=== PATIENT | male | born 1965 | race Caucasian/White ===

== ENCOUNTER 2018-06-04 14:55 | Inpatient (IN) ==
[2018-06-04 15:37] LABS: BE 13.9 mmoll (-3.0-3.0); BLOOD TYPE ARTERIAL; HCO3-(ACT) 35.4 mmoll (20.0-26.0); O2(CT) 13.5 mL/dL (15.0-23.0); SAMPLE BLOOD; SAO2 86.5 % (95.0-100.0); THB 12.1 g/dL (11.5-17.4); pH(98.6) 7.45 (7.35-7.45)
[2018-06-04 15:41] LABS: ALLEN TEST YES; MODALITY CANNULA; PCO2(98.6) 58 mmHg (35-45)
[2018-06-04 15:42] LABS: O2HB 79.7 % (95.0-99.0); PO2(98.6) 42 mmHg (60-100)
[2018-06-04] MEDS ORDERED: DUONEB (A & A) INH ONE (15:43)
[2018-06-04 15:44] LABS: BASO# 0.07 X1000 (0.0-0.2); BASO% 0.7 % (0.0-0.8); EOS# 0.11 X1000 (0.0-0.7); EOS% 1.2 % (0.0-10.0); HEMATOCRIT 41.7 % (42.0-52.0); HEMOGLOBIN 12.2 g/dL (14.0-18.0); IMM GRAN# 0.02 X1000 (0.0-0.04); IMM GRAN% 0.2 % (0.0-0.5); LYMPH# 0.98 X1000 (1.2-3.4); LYMPH% 10.5 % (20.5-51.1); MCH 26.6 PG (27-31); MCHC 29.3 g/dL (33-37); MCV 90.8 FL (81-99); MONO# 1.28 X1000 (0.11-0.59); MONO% 13.7 % (1.7-9.3); MPV 10.3 FL (7.4-10.4); NEUT# 6.91 X1000 (1.4-6.5); NEUT% 73.7 % (42.2-75.2); PLT 238 X1000 (130-400); RBC 4.59 XMIL (4.7-6.1); RDW 18.9 % (11.5-14.5); WBC 9.37 X1000 (4.8-10.8)
[2018-06-04 15:57] LABS: INR 1.06; PROTIME 14.3 Seconds (11.0-16.0)
[2018-06-04 15:58] LABS: PTT 34.5 Seconds (22.3-41.8)
[2018-06-04 16:02] LABS: AGAP 10; ALBUMIN 3.6 g/dL (3.5-5.0); ALKALINE PHOSPHATASE 115 U/L (32-122); BUN 16 mg/dL (8-22); CALCIUM 8.4 mg/dL (8.8-10.2); CHLORIDE 92 mmol/L (98-107); CK PROFILE 76 U/L (24-204); COSMO 283; CREATININE 0.9 mg/dL (0.7-1.2); ESTIMATED GFR > 60; GLUCOSE 135 mg/dL (70-104); GOT 18 U/L (10-34); GPT 15 U/L (10-44); POTASSIUM 3.8 mmol/L (3.5-5.1); SODIUM 140 mmol/L (136-145); TCO2 38 mmol/L (25-35); TOTAL PROTEIN 6.8 g/dL (6.3-8.3)
--- NOTE | 2018-06-04 16:13 | Diag Imaging Result Doc PS360 ---
EXAM: CHEST-2 VIEWS HISTORY: sob TECHNIQUE: Chest two views COMPARISON: 01/08/2018 FINDINGS: The lungs are well expanded. The heart is mildly enlarged. Mild central vascular distention. There are dense infiltrates in the right lung base. No pleural effusions. IMPRESSION: Cardiomegaly with mild pulmonary edema. Likely underlying pneumonia in the right base. Electronically signed by Louis eBebe 06/04/2018 4:10 PM
--- NOTE | 2018-06-04 16:16 | PROVIDER DOCUMENTATION ---
This chart was entered by Kemi Parikh Scribe, acting as scribe for Jayesh Madrigal MD. HPI-General Adult - General Chief Complaint: Shortness of Breath Stated Complaint: MALE Time Seen by Provider: 06/04/18 15:39 Source: patient Allergies/Adverse Reactions: Patient Allergies Allergy/AdvReac Type Severity Reaction Status Date / Time No Known Allergies Allergy Verified 10/15/17 11:16 Home Medications: Home Medication List Medication Instructions Recorded Confirmed Last Taken Type Diltiazem C.d. [Cardizem Cd] 120 mg PO DAILY #30 cap 01/10/18 Unknown Rx Furosemide [Lasix] 40 mg PO BID #60 tab 01/10/18 Unknown Rx LISINOpril [Prinivil] 20 mg PO DAILY #90 tab 01/10/18 Unknown Rx Methylprednisolone [Medrol Dosepak] 4 mg PO DIRECTED #1 pkg 01/10/18 Unknown Rx Omeprazole [Prilosec] 40 mg PO DAILY@0700 #30 cap 01/10/18 Unknown Rx - History of Present Illness -Gen Adult Nature of Presenting Problems: 52 y/o male presents to the ED with complaint of scrotal swelling. The patient states he has a history of CHF and COPD with chronic swelling but not to this point. The patient is also morbidly obese. Location of Pain/Injury: reports: generalized Onset/Duration: reports: gradual Timing: reports: still present Similar Symptoms Previously?: Yes Recently seen or treated by another doctor?: No Review of Systems - Adult - REVIEW OF SYSTEMS - ADULT Constitutional: reports: weight gain. denies: chills, fever Eyes: reports: no symptoms reported Ears, Nose, Mouth & Throat: reports: no symptoms reported Cardiovascular: reports: other (generalized fluid overload). denies: chest pain, palpitations, syncope Respiratory: reports: no symptoms reported Gastrointestinal: denies: diarrhea, nausea, vomiting Genitourinary: reports: no symptoms reported Musculoskeletal: reports: no symptoms reported Integumentary: reports: no symptoms reported Neurological: reports: no symptoms reported Psychiatric: reports: no symptoms reported Endocrine: reports: no symptoms reported Hematologic/Lymphatic: reports: no symptoms reported Allergic/Immunologic: reports: no symptoms reported All Other Systems: Reviewed and Negative Past History - Adult - PAST MEDICAL HISTORY-ADULT Review of Records: reports: Old Records Reviewed, Nursing Assessment Review, Medications Reviewed Major Childhood Illnesses: reports: denies history Cardiovascular: reports: CHF, HTN Respiratory: reports: COPD Gastrointestinal: reports: GERD Genitourinary: reports: denies history Musculoskeletal: reports: denies history Neurological: reports: denies history Endocrine/Immune: reports: denies history Other Conditions: reports: denies history - PRIOR SURGERIES/PROCEDURES Surgical/Procedure History: reports: orthopedic (extremity) (ankles, L knee) - IMMUNIZATION STATUS Childhood Immunizations: See Nurse Assessment Flu Vaccine: See Nurse Assessment - FAMILY HISTORY Family History: reviewed, not pertinent - SOCIAL HISTORY Smoking: cigarettes Provider spent 3-5 mins advising pt. on dangers of tobacco.: Discussed manners to quit use, and f/u contacts for add'l counseling. Living Situation: family Physical Exam-General - PHYSICAL EXAM-ADULT Initial Vital Signs Reviewed: Yes - CONSTITUTIONAL General Appearance: alert, obese - EYES Eyes: PERRL/EOMI, pink conjunctivae - HEAD, EARS, NOSE, MOUTH & THROAT HENMT: normocephalic/atraumatic, moist mucous membranes - NECK Neck: supple - RESPIRATORY Respiratory: rhonchi (inspiratory), other (diminished breath sounds, bases relatively quiet.) - CARDIOVASCULAR Cardiovascular: regular rate, rhythm, other (severe edema) - MUSCULOSKELETAL Extremity: other (severe edema) - SKIN Integumentary: erythema (bilateral lower extremities) - NEUROLOGIC Neurologic: grossly normal Progress - PLAN OF CARE/RESULTS Progress/Plan/Lab Results: Vital Signs - 8 hr 06/04/18 14:59 Temperature 98 F Pulse Rate 90 Respiratory Rate 18 Blood Pressure 115/75 O2 Sat by Pulse Oximetry 86 L Laboratory Results - last 24 hr 06/04/18 15:15 Specimen Type ARTERIAL Sample Site R RADIAL pH 7.45 pCO2 58 H* pO2 42 L* HCO3 35.4 H Base Excess 13.9 H Oxyhemoglobin 79.7 L* ABG O2 Sat (Calculated) 13.5 L ABG O2 Saturation 86.5 L ABG Carboxyhemoglobin 8.00 H* ABG Methemoglobin 0.0 Yasir Test YES A-a O2 Difference 35.0 Total Hemoglobin 12.1 Lactate 1.80 Blood Gas Modality CANNULA FiO2 % 21.0 Orders Category Date Time Status Cardiac Monitoring DIRECTED Care 06/04/18 15:18 Active Oxygen Therapy- ED Nursing DIRECTED Care 06/04/18 15:18 Active Saline Loc NOW Care 06/04/18 15:18 Active CHEST-2 VIEWS [RAD] Stat Exams 06/04/18 15:18 Ordered ABG [RESP] Routine Lab 06/04/18 15:15 Completed CBC WITH ELECTRONIC DIFF [HEME] Stat Lab 06/04/18 15:35 Results CK PROFILE [SP CHEM] Stat Lab 06/04/18 15:35 Received COMPREHENSIVE METABOLIC PANEL [CHEM] Stat Lab 06/04/18 15:35 Received PRO B-NATRIURETIC PEPTIDE Stat Lab 06/04/18 15:35 Received PROTIME WITH INR [COAG] Stat Lab 06/04/18 15:35 Received PTT [COAG] Stat Lab 06/04/18 15:35 Received TROPONIN T Stat Lab 06/04/18 15:35 Received CP/SOB/Palp >45 yrs of Age Stat Oth 06/04/18 15:17 Ordered EKG [EKG] Stat Ther 06/04/18 15:18 Ordered Transfer/Admit Order [TRANSFER] Routine Transfer 06/04/18 15:40 Ordered Result Diagrams: 06/04/18 15:35 06/04/18 15:35 - EKG 1 Time of EKG reading by physician:: 15:25 EKG Read and Signed by:: Jayesh Madrigal Rate: 89 Rhythm: sinus rhythm w/1st degree AV block Dubberly: normal Comments: Right bundle branch block Departure - Departure Date of Disposition Decision: 06/04/18 Time of Disposition Decision: 16:15 DIAGNOSIS: COPD (chronic obstructive pulmonary disease), Cor pulmonale (chronic), Sleep apnea in adult Disposition: ADMITTED INPATIENT 09 Certified Medical Emergency: Emergent Condition: Stable Referrals and Follow-Ups: Carlo Bonds MD [Primary Care Provider] - - Critical Care Note This patient required my direct & personal management of CC.: No Attestation - Physician/ JEANE Attestation Patient care was provided by Advanced Practice Provider:: No The physician spent face to face time with patient:: Yes Advanced Practice Provider documentation review:: Supervising physician onsite and consulted in the evaluation and care of this patient. The physician did have a face to face encounter with the patient. This chart was documented by the indicated scribe, (Kemi Parikh, Peggy) and accurately reflects the services I performed and decisions made by me, Jayesh Madrigal MD, as attested by the provider's signature.
[2018-06-04] MEDS ORDERED: LASIX IV ONE (17:31)
[2018-06-04] MEDS ORDERED: DUONEB (A & A) INH PRN (17:33)
[2018-06-04] MEDS ORDERED: NICODERM PATCH TD SCH (17:45)
[2018-06-04] MEDS ORDERED: ZITHROMAX 500 MG/NS 500 MG/250 ML IVPB IV SCH ×2 (17:45→22:15)
[2018-06-04] MEDS ORDERED: ROCEPHIN 1 GM in NS 50 ML IV SCH (17:45)
[2018-06-04 18:22] LABS: FREE T4 1.14 ng/dL (0.93-1.70); TSH 1.87 uIUmL (0.27-4.20)
--- NOTE | 2018-06-04 18:55 | HISTORY AND PHYSICAL ---
ADDENDUM: CHIEF COMPLAINT: Shortness of breath. Patient was seen and examined by myself. Full note dictated and discussed with nurse practitioner. Patient has a known history of COPD, CHF, and obstructive sleep apnea. I expect he is [place] as well. He has been out of his medications, has lost his job, and so he has not gone to his doctor. He is in an acute exacerbation of his CHF. We will admit him to the hospital. Daria Sheikh, and will follow. cc: Carlo Bonds MD
[2018-06-04] MEDS ORDERED: NARCAN IV ONE ×2 (19:14→20:05)
[2018-06-04] MEDS: DUONEB (A & A) INH SCH ×2 (19:20→22:32)
[2018-06-04] MEDS ORDERED: NARCAN ONE (19:20)
[2018-06-04] MEDS ORDERED: NS 1,000 ML ONE (19:25)
[2018-06-04 19:54] LABS: BE 15.4 mmoll (-3.0-3.0); BLOOD TYPE ARTERIAL; HCO3-(ACT) 36.8 mmoll (20.0-26.0); METHB 1.2 % (0.0-1.5); O2(CT) 17.3 mL/dL (15.0-23.0); O2HB 92.7 % (95.0-99.0); PO2(98.6) 118 mmHg (60-100); SAMPLE BLOOD; SAO2 98.6 % (95.0-100.0); THB 13.1 g/dL (11.5-17.4); pH(98.6) 7.23 (7.35-7.45)
[2018-06-04 19:56] LABS: ALLEN TEST YES; MODALITY BI PAP; PCO2(98.6) 115 mmHg (35-45)
[2018-06-04 19:57] LABS: UR AMPHETAMINES QUAL NONE DETECTED (NONE DETECT); UR BARBITUATES QUAL NONE DETECTED (NONE DETECT); UR BENZODIAZEPIN QUAL NONE DETECTED (NONE DETECT); UR CANNABINOIDS QUAL PRESUMPTIVE POSITIVE (NONE DETECT); UR COCAINE QUAL NONE DETECTED (NONE DETECT); UR METHADONE QUAL NONE DETECTED (NONE DETECT); UR METHAMPHETAMINE QUAL NONE DETECTED (NONE DETECT); UR OPIATES QUAL NONE DETECTED (NONE DETECT); UR OXYCODONE QUAL NONE DETECTED (NONE DETECT); UR PCP QUAL NONE DETECTED (NONE DETECT); UR PROPOXYPHENE QUAL NONE DETECTED (NONE DETECT); UR TCA QUAL NONE DETECTED (NONE DETECT); URINE SOURCE CATH
[2018-06-04 20:00] LABS: BILIRUBIN URINE NEGATIVE (NEGATIVE); BLOOD URINE NEGATIVE (NEGATIVE); CLARITY SLIGHTLY CLOUDY (CLEAR); COLOR YELLOW; GLUCOSE URINE NEGATIVE (NEGATIVE); KETONE URINE TRACE mg/dL (NEGATIVE); LEUKOCYTES URINE NEGATIVE (NEGATIVE); NITRITE URINE NEGATIVE (NEGATIVE); PROTEIN URINE 2+(100 mg/dL) mg/dL (NEGATIVE); UROBILINOGEN URINE 4 mg/dL
[2018-06-04 20:02] LABS: URINE BACTERIA 1+ /HFP; URINE CAST GRANULAR PRESENT /LPF; URINE EPITHELIAL CELLS >10 /HPF (<10); URINE RBC <10 /HPF (<10); URINE WBC <10 /HPF (<10); URINE YEAST NONE SEEN /HPF
[2018-06-04 20:03] LABS: URINE CRYSTAL NONE SEEN /HPF
[2018-06-04] MEDS: ASPIRIN PO SCH (20:22)
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
[2018-06-04] MEDS ORDERED: VERSED IV ONE (20:30)
[2018-06-04] MEDS ORDERED: NORCURON IV ONE (20:30)
[2018-06-04] MEDS ORDERED: VERSED ONE (20:33)
[2018-06-04] MEDS ORDERED: NORCURON ONE (20:33)
[2018-06-04] MEDS ORDERED: STERILE WATER INJ. ONE (20:34)
[2018-06-04] MEDS ORDERED: DIPRIVAN 1% 1,000 MG/100 ML BOTTLE ONE (20:55)
[2018-06-04] MEDS: DIPRIVAN 1% 1,000 MG/100 ML BOTTLE IV SCH ×3 (21:04→23:39)
[2018-06-04 21:29] LABS: BE 15.8 mmoll (-3.0-3.0); BLOOD TYPE ARTERIAL; HCO3-(ACT) 37.2 mmoll (20.0-26.0); O2(CT) 17.5 mL/dL (15.0-23.0); O2HB 93.6 % (95.0-99.0); PO2(98.6) 100 mmHg (60-100); SAMPLE BLOOD; SAO2 98.9 % (95.0-100.0); SRATE 18 BPM; THB 13.2 g/dL (11.5-17.4); TVOL 550 mL; pH(98.6) 7.36 (7.35-7.45)
--- NOTE | 2018-06-04 21:30 | Diag Imaging Result Doc PS360 ---
EXAM: CHEST-PORTABLE HISTORY: verify tube placement TECHNIQUE: Portable chest single view COMPARISON: 3:58 PM FINDINGS: An endotracheal tube has been placed since the prior study. The tip is located approximately 3 cm above the ayesha. There are infiltrates and/or atelectasis in the right base. IMPRESSION: Endotracheal tube in good position. Electronically signed by Louis Beebe 06/04/2018 9:27 PM
[2018-06-04 21:31] LABS: ALLEN TEST YES; MODALITY VENTILATOR; PCO2(98.6) 80 mmHg (35-45)
[2018-06-04] MEDS: SOLU-MEDROL IV SCH (21:51)
[2018-06-04] MEDS: LOVENOX SUBQ SCH (21:51)
[2018-06-04] MEDS ORDERED: LASIX ONE (22:02)
[2018-06-05] MEDS: DIPRIVAN 1% 1,000 MG/100 ML BOTTLE IV SCH ×12 (02:09→23:58)
[2018-06-05] MEDS: SOLU-MEDROL IV SCH ×3 (02:11→17:39)
[2018-06-05] MEDS: DUONEB (A & A) INH SCH ×6 (03:39→23:45)
[2018-06-05 05:02] LABS: ALLEN TEST YES; BE 17.1 mmoll (-3.0-3.0); BLOOD TYPE ARTERIAL; HCO3-(ACT) 38.2 mmoll (20.0-26.0); METHB 1.1 % (0.0-1.5); O2(CT) 17.5 mL/dL (15.0-23.0); O2HB 95.2 % (95.0-99.0); PO2(98.6) 88 mmHg (60-100); SAMPLE BLOOD; SAO2 98.9 % (95.0-100.0); SRATE 18 BPM; TVOL 550 mL; pH(98.6) 7.46 (7.35-7.45)
[2018-06-05 05:03] LABS: MODALITY VENTILATOR
[2018-06-05 05:04] LABS: PCO2(98.6) 62 mmHg (35-45)
[2018-06-05 05:17] LABS: HEMATOCRIT 43.3 % (42.0-52.0); HEMOGLOBIN 12.4 g/dL (14.0-18.0); MCH 26.6 PG (27-31); MCHC 28.6 g/dL (33-37); MCV 92.7 FL (81-99); RBC 4.67 XMIL (4.7-6.1); RDW 19.2 % (11.5-14.5)
[2018-06-05 05:40] LABS: AGAP 9; BUN 18 mg/dL (8-22); CALCIUM 9.2 mg/dL (8.8-10.2); CHLORIDE 94 mmol/L (98-107); COSMO 281; CREATININE 1.2 mg/dL (0.7-1.2); ESTIMATED GFR > 60; GLUCOSE 134 mg/dL (70-104); POTASSIUM 4.4 mmol/L (3.5-5.1); SODIUM 139 mmol/L (136-145); TCO2 36 mmol/L (25-35)
--- NOTE | 2018-06-05 06:56 | Diag Imaging Result Doc PS360 ---
EXAM: CHEST-PORTABLE HISTORY: Pt on vent TECHNIQUE: Portable chest single view COMPARISON: 06/04/2018 FINDINGS: No change in the position of the endotracheal tube. The heart is not enlarged. Mild central vascular prominence and there are small pleural effusions. There are underlying infiltrates or basilar atelectasis. IMPRESSION: No interval improvement. Electronically signed by Louis Beebe 06/05/2018 6:53 AM
[2018-06-05] MEDS ORDERED: LASIX IV SCH ×2 (08:00→09:00)
[2018-06-05] MEDS ORDERED: VANCOMYCIN IV PER PHARMACY MISC SCH (08:45)
[2018-06-05] MEDS: PERIDEX MT SCH ×2 (08:58→21:28)
[2018-06-05] MEDS: PROTONIX IV SCH (09:26)
[2018-06-05] MEDS: LASIX IV SCH ×3 (09:27→21:27)
[2018-06-05] MEDS: ZOSYN 3.375 GM in NS 50 ML IV SCH ×3 (09:27→21:27)
[2018-06-05] MEDS: ASPIRIN PO SCH (09:27)
[2018-06-05] MEDS: VANCOMYCIN 1,800 MG in NS 250 ML IV SCH (10:54)
--- NOTE | 2018-06-05 11:41 | PROGRESS NOTE ---
DATE: 06/05/2018 INTERVAL HISTORY: Mr. Gonzalez was transferred from [facility] [place] to [facility] for need for pulmonology evaluation. He was admitted to [facility] [place] for acute hypoxic respiratory failure in the setting of COPD exacerbation as well as right heart failure. SUBJECTIVE: Patient is intubated and sedated. It looks like at [facility] [place] he had presented with shortness of breath and severe respiratory distress . His respiratory distress had started getting worse to an extent that he could not tolerate BiPAP well, and needed intubation. Then, he was or transferred to [facility] overnight. OBJECTIVE: Vital Signs: Currently, vital signs detect temperature of 97.2 degrees, pulse of 76, respiratory rate on 18 on mechanical ventilation. He is saturating 94% on 100% FiO2. His blood pressure is 117/79. General: Morbidly obese and sedated. HEENT: Pupils bilaterally equal and reacting to light. Oral cavity has endotracheal tube. Significantly decreased air entry bilateral lung boggs with apparent wheezing bilaterally. S1, S2 normal. No murmur, rub, or gallop. Abdomen: Obese, soft, and nontender. Extremities: Extreme edema affecting scrotum and bilateral lower extremities extending up to thighs. I could not appreciate reflexes very well. LABORATORY: Labs suggestive of normocytic anemia and normal platelet count. His ABG in the morning had pH of 7.46, pCO2 of 62, PO2 of 88 on 100% FiO2. His electrolytes suggest hypochloremia, elevated bicarbonate, and normal kidney function. His troponin's have been negative. No blood culture or sputum culture data available as yet. IMAGING: Chest x-ray today morning had suggested central vascular prominence, small pleural effusions, and underlying infiltrates or basilar atelectasis. ASSESSMENT AND PLAN: 1. Acute hypoxic respiratory failure with chronic hypercarbic respiratory failure with volume overload. Contributing factors includes acute diastolic predominantly right sided congestive heart failure exacerbation, pulmonary hypertension, bilateral lower lobe pneumonia, acute COPD exacerbation. Continue mechanical ventilation with pulmonology recommendations. Continue intravenous Lasix with close monitoring of input and output and BMP. Follow up blood culture and sputum culture results, urine antigens and continue broad antibiotics vancomycin and Zosyn. Continue sedation with propofol with goal RASS score of -1. Continue albuterol ipratropium nebulization every 4 hours scheduled. Chlorhexidine for ventilator associated pneumonia prophylaxis, and methylprednisone intravenous every 8 hours. 2. Others: Continue pantoprazole for GI prophylaxis. 3. Enoxaparin for DVT prophylaxis. 4. He does have past history of DVT/PE in September of 2017, past history of sleep apnea and pulmonary hypertension. In future a repeat CT PE could be a consideration if he doesn't improve. DISPOSITION: More than 30 minutes of critical care time was spent in taking care of this patient. Plan of care was discussed with the nursing team. I reached out and called the patient's . However, the patient's father in law picked up the phone, and I was not able to reach out to the . I have left a message with father in law so that the calls us back. cc: Sumeet Franklin MD MTDD
--- NOTE | 2018-06-05 12:14 | EKG Report ---
Test Performed on : 06/04/2018 3:25:00 PM Test Reason : sob Blood Pressure : / mmHG Vent. Rate : 089 BPM Atrial Rate : 089 BPM P-R Int : 220 ms QRS Dur : 176 ms QT Int : 424 ms P-R-T Axes : 058 166 052 degrees QTc Int : 515 ms Sinus rhythm. with 1st degree AV block. Right bundle branch block Abnormal ECG When compared with ECG of 05-JAN-2018 13:18, QRS axis shifted right Unconfirmed Result
--- NOTE | 2018-06-05 12:29 | EKG Report ---
Test Performed on : 06/04/2018 9:05:38 PM Test Reason : ER Blood Pressure : / mmHG Vent. Rate : 076 BPM Atrial Rate : 076 BPM P-R Int : 224 ms QRS Dur : 180 ms QT Int : 442 ms P-R-T Axes : 061 169 017 degrees QTc Int : 497 ms Sinus rhythm. with 1st degree AV block. Indeterminate axis Right bundle branch block Abnormal ECG When compared with ECG of 04-JUN-2018 15:25, (Unconfirmed) No significant change was found Confirmed by Jayesh Madrigal MD ([id number]) on 06/11/2018 11:15:05 AM
[2018-06-05] MEDS: LOVENOX SUBQ SCH (17:40)
--- NOTE | 2018-06-05 19:15 | PULMONOLOGY CONSULTATION ---
DATE: 06/05/2018 REQUESTING PHYSICIAN: Dr. Bonds. REASON FOR CONSULTATION: Respiratory failure. HISTORY OF PRESENT ILLNESS: Mr. Gonzalez is a 52-year-old white male with morbid obesity and a BMI greater than 58, COPD with ongoing tobacco use, pulmonary hypertension, history of deep vein thrombosis, who presented to [facility] Room yesterday with increased shortness of breath, along with increased swelling in his lower extremities and his scrotum. He had acute hypoxemic respiratory failure upon presentation, along with a carboxyhemoglobin level of 8. The patient was admitted to the floor for treatment, but developed progressive obtundation requiring intubation and initiation of mechanical ventilation. The patient was transferred to [facility]. PAST MEDICAL HISTORY: Problem List: 1. Morbid obesity. 2. COPD, with ongoing tobacco use. 3. Pulmonary hypertension. 4. Reflux. 5. Sleep apnea without compliance to CPAP device. 6. Diastolic heart failure. SOCIAL HISTORY: The patient smokes two packs a day, along with frequent marijuana use. No alcohol use noted. FAMILY HISTORY: Not contributory to current presentation. REVIEW OF SYSTEMS: Cannot be obtained. PHYSICAL EXAMINATION: General: Reveals a morbidly obese male who is sedated and appears comfortable on mechanical ventilation. BP 136/91, heart rate 82, respiratory rate 18, oxygen saturation 95%. HEENT: Pupils are equal and reactive. Oropharynx appears clear. Neck: Supple. Chest: Reveals prolonged expiratory phase. Cardiac: S1, S2. Abdomen: Obese and soft. Genitourinary: Reveals significant scrotal edema. Extremities: Reveal 1+ peripheral edema. LABORATORIES: Arterial blood gas prior to intubation: pH 7.23, pCO2 of 115, PO2 of 118 on 80% FiO2. Arterial blood gas this morning on 80% FiO2 reveals pH 7.46, pCO2 of 62, PO2 of 88. Chemistry: Sodium 139, potassium 4.4, chloride 94, bicarbonate 36, BUN 18, creatinine 1.2. ProBNP is 1516. White blood count 8.0, hemoglobin 12.4, platelet count 219,000. Chest x-ray reveals generous cardiac silhouette, pulmonary edema, pleural effusions. IMPRESSION: A 52-year-old with COPD, ongoing tobacco use, morbid obesity with a BMI of 58, marijuana use, obstructive sleep apnea with noncompliance to regimen, who presents with acute cor pulmonale with significant edema, pulmonary edema, acute hypoxemic respiratory failure, acute hypercapnic respiratory failure. RECOMMENDATIONS: 1. Agree with intubation as you have done for acute hypoxemic and hypercapnic respiratory failure. 2. Keep oxygen saturation greater than 90%. 3. I agree with steroids and current Lasix dosing. The patient has significant amount of fluid and may take several days to diurese. 4. Continue bronchodilators. 5. Gastric acid suppression. 6. Continue DVT prophylaxis. 7. His long-term prognosis looks extremely poor if he does not lose weight and stop smoking traditional cigarettes and marijuana. TIME SPENT: Critical care 1 hour. cc: Danish Garg MD
[2018-06-05] MEDS ORDERED: ZITHROMAX 500 MG/NS 500 MG/250 ML IVPB IV SCH (22:00)
[2018-06-06] MEDS: DIPRIVAN 1% 1,000 MG/100 ML BOTTLE IV SCH ×13 (00:55→23:19)
[2018-06-06] MEDS: ZOSYN 3.375 GM in NS 50 ML IV SCH ×4 (01:59→19:45)
[2018-06-06] MEDS: SOLU-MEDROL IV SCH ×3 (02:00→18:32)
[2018-06-06] MEDS: LASIX IV SCH ×4 (02:01→21:44)
[2018-06-06] MEDS: DUONEB (A & A) INH SCH ×6 (03:53→23:15)
[2018-06-06] MEDS: VANCOMYCIN 1,800 MG in NS 250 ML IV SCH ×2 (03:55→22:01)
[2018-06-06 05:19] LABS: BLOOD TYPE ARTERIAL; MODALITY VENTILATOR; SAMPLE BLOOD
[2018-06-06 05:20] LABS: SRATE 14 BPM; TVOL 6 mL
[2018-06-06 05:21] LABS: ALLEN TEST YES
[2018-06-06 05:22] LABS: pH(98.6) 7.45 (7.35-7.45)
[2018-06-06 05:24] LABS: PO2(98.6) 163 mmHg (60-100)
[2018-06-06 05:26] LABS: PCO2(98.6) 61 mmHg (35-45)
[2018-06-06 05:44] LABS: HEMATOCRIT 43.1 % (42.0-52.0); HEMOGLOBIN 12.6 g/dL (14.0-18.0); MCH 26.4 PG (27-31); MCHC 29.2 g/dL (33-37); MCV 90.4 FL (81-99); MPV 10.6 FL (7.4-10.4); RBC 4.77 XMIL (4.7-6.1); RDW 19.7 % (11.5-14.5); WBC 9.07 X1000 (4.8-10.8)
[2018-06-06 06:08] LABS: AGAP 12; BUN 21 mg/dL (8-22); CALCIUM 8.9 mg/dL (8.8-10.2); CHLORIDE 96 mmol/L (98-107); COSMO 295; CREATININE 1.1 mg/dL (0.7-1.2); ESTIMATED GFR > 60; GLUCOSE 154 mg/dL (70-104); POTASSIUM 3.8 mmol/L (3.5-5.1); SODIUM 145 mmol/L (136-145); TCO2 37 mmol/L (25-35)
[2018-06-06] MEDS: PROTONIX IV SCH (07:35)
[2018-06-06] MEDS: SODIUM CHLORIDE 0.9% INJ SCH (07:35)
--- NOTE | 2018-06-06 07:58 | Diag Imaging Result Doc PS360 ---
EXAM: CHEST-PORTABLE INDICATION: Dyspnea TECHNIQUE: One view COMPARISON: 06/05/2018 FINDINGS: ET tube is in stable position. Pulmonary venous congestion is approximately stable. The effusions, at least on the right, appears smaller. This is probably due to positioning, however. No new consolidation is identified. Cardiac silhouette is stable. IMPRESSION: Questionable slight decrease in size of pleural effusions. Stable chest, otherwise. Electronically signed by Anastacio Mercedes 06/06/2018 7:55 AM
[2018-06-06] MEDS: ASPIRIN PO SCH (08:50)
[2018-06-06] MEDS: PERIDEX MT SCH ×2 (08:51→21:46)
--- NOTE | 2018-06-06 10:27 | Diag Imaging Result Doc PS360 ---
EXAM: CHEST-PORTABLE INDICATION: Verify NG placement TECHNIQUE: One view COMPARISON: 06/06/2018 FINDINGS: There is a newly placed NG tube. The tip projects well below the diaphragm and is assumed in the lumen of the stomach in expected position. Limited views of the lung bases are grossly stable. IMPRESSION: Interval placement of NG tube in expected position as described. Electronically signed by Anastacio Mercedes 06/06/2018 10:25 AM
--- NOTE | 2018-06-06 10:55 | PROGRESS NOTE ---
DATE: 06/06/2018 INTERVAL HISTORY: It is unclear that the patient was agitated overnight or not, but apparently, he required restraints, and his propofol was increased in dose. In the morning time, he appears very sedated, intubated, does not answer any questions, and I discussed with the nursing team about decreasing sedation. I also discussed with Respiratory Therapy about decreasing FiO2. His EKG did detect a right bundle branch block which was old with left anterior fascicular block. OBJECTIVE: Currently vitals detect temperature of 96.8 degrees, pulse of 71, respiratory rate 15, his blood pressure is 124/86. He is saturating 95% on 90% FiO2. On physical examination, morbidly obese, sedated. Pupils bilaterally equal, reacting to light. He has endotracheal tube. Thick chest wall and is difficult to appreciate breath sounds. However, his wheezing appeared to have improved. Mild bilateral decreased air entry with crackles. S1, S2 normal. No murmur, rub, or gallop. Obese abdomen, soft, nontender. Extreme edema affecting scrotum and bilateral lower extremities extending up to thighs. Reflexes were difficult to be appreciated. INPUT AND OUTPUT: Suggests he has 5 L urine with -3 L so far. LABORATORY DATA: Labs suggestive of no leukocytosis. Normal hemoglobin, hematocrit, and platelet count. ABG suggestive of PO2 of 160 and pCO2 of 61 on 100% FiO2. Hypochloremia, elevated bicarbonate with normal kidney function. The blood glucoses have been in acceptable range. MICROBIOLOGY: Blood culture and sputum culture are in lab. Urine antigens have not been collected yet. IMAGING: Chest x-ray performed today suggests bilateral pleural effusion. There might be increased pulmonary vascular congestion. ASSESSMENT: 1. Acute hypoxic respiratory failure and acute hypercarbic respiratory failure on chronic hypercarbic respiratory failure. 2. Bilateral lower lobe pneumonia and bilateral pleural effusion. 3. Acute cor pulmonale. 4. Severe pulmonary hypertension and sleep apnea. 5. Morbid obesity. 6. Previous history of deep vein thrombosis/pulmonary embolism in September [address] angiography and ultrasound lower extremity in December 2017. PLAN: Continue intubation with mechanical ventilation and propofol for sedation and decrease the sedation as tolerated. Continue chlorhexidine for pneumonia prophylaxis, pantoprazole for GI prophylaxis, enoxaparin for DVT prophylaxis. Continue albuterol/ipratropium every 4 hours for acute COPD exacerbation with methylprednisolone with intravenous Lasix. Continue intravenous antibiotics and follow up with culture results. DISPOSITION: The patient's condition remains critical. Plan of care was discussed with the patient's at bedside. I explained to her about the patient's multiple medical conditions and poor prognosis. Once patient is extubated, he might need nicotine patches. Plan of care discussed with her. All of her questions have been answered. cc: Sumeet Franklin MD
--- NOTE | 2018-06-06 13:07 | EKG Report ---
Test Performed on : 06/05/2018 00:17:10 AM Test Reason : widening qrs Blood Pressure : / mmHG Vent. Rate : 072 BPM Atrial Rate : 072 BPM P-R Int : 218 ms QRS Dur : 176 ms QT Int : 438 ms P-R-T Axes : 058 208 031 degrees QTc Int : 479 ms Sinus rhythm. with 1st degree AV block. Right bundle branch block Abnormal ECG When compared with ECG of 04-JUN-2018 21:05, (Unconfirmed) No significant change was found Confirmed by Ronaldo YE, Michael ([id number]) on 06/07/2018 8:54:06 AM
[2018-06-06] MEDS: LOVENOX SUBQ SCH (18:32)
--- NOTE | 2018-06-06 20:35 | PULMONOLOGY PROGRESS NOTE ---
DATE: 06/06/2018 SUBJECTIVE: The patient does become agitated and has required restraints to keep him from pulling his endotracheal tube. OBJECTIVE: Vital Signs: The patient has been afebrile for the last 24 hours. He remains on mechanical ventilation with ahigh FiO2 requirement. BP 130/109, heart rate 94, respiratory rate 12, oxygen saturation 93%. Intake 2006, output 5350. HEENT: Pupils are equal and reactive. Oropharynx appears clear. Neck: Supple. Chest reveals distant breath sounds bilaterally with faint crackles. Cardiac: Distant heart sounds. Normal S1, normal S2. Abdomen: Obese and soft. Genitourinary: Reveals significant scrotal edema. Extremities: Reveal 2+ peripheral edema. LABORATORIES: Sodium 145, potassium 3.8, chloride 96, bicarbonate 37, BUN 21, creatinine 1.1. White blood count 9.07, hemoglobin 12.6, platelet count 224,000. Arterial blood gas reveals a pH 7.45, pCO2 of 61, PO2 of 163. IMPRESSION: A 52-year-old with: 1. Chronic obstructive pulmonary disease. 2. Ongoing tobacco use. 3. Acute hypoxemic respiratory failure. 4. Acute hypercapnic respiratory failure. 5. Morbid obesity with a BMI of 58. 6. Marijuana use. 7. Obstructive sleep apnea with noncompliance. 8. Acute cor pulmonale. 9. Pulmonary edema. RECOMMENDATIONS: 1. Continue ventilatory support. It is hoped with adequate oxygenation he will start to mobilize a significant amount of his total body fluid. 2. Continue DVT prophylaxis. 3. Continue bronchodilators. 4. Anticipate needs for NG tube placement for caloric supplementation to prevent protein and skin breakdown. 5. Long-term, patient will need to lose weight and stop smoking cigarettes and marijuana if he wants to survive. TIME SPENT: Critical care 30+ minutes. cc: Danish Garg MD
[2018-06-07] MEDS: SOLU-MEDROL IV SCH ×3 (00:55→17:37)
[2018-06-07] MEDS: DIPRIVAN 1% 1,000 MG/100 ML BOTTLE IV SCH ×13 (00:56→23:43)
[2018-06-07] MEDS: ZOSYN 3.375 GM in NS 50 ML IV SCH ×4 (02:28→19:43)
[2018-06-07] MEDS: LASIX IV SCH ×5 (02:28→21:54)
[2018-06-07] MEDS: DUONEB (A & A) INH SCH ×7 (03:53→23:37)
[2018-06-07 05:10] LABS: ALLEN TEST YES; BE 17.1 mmoll (-3.0-3.0); BLOOD TYPE ARTERIAL; HCO3-(ACT) 38.2 mmoll (20.0-26.0); O2(CT) 18.5 mL/dL (15.0-23.0); O2HB 96.4 % (95.0-99.0); PO2(98.6) 115 mmHg (60-100); SAMPLE BLOOD; SAO2 99.1 % (95.0-100.0); SRATE 10 BPM; THB 13.5 g/dL (11.5-17.4); TVOL 650 mL; pH(98.6) 7.44 (7.35-7.45)
[2018-06-07 05:11] LABS: MODALITY VENTILATOR
[2018-06-07 05:12] LABS: HEMATOCRIT 43.8 % (42.0-52.0); HEMOGLOBIN 12.7 g/dL (14.0-18.0); MCV 89.8 FL (81-99); MPV 10.7 FL (7.4-10.4); RBC 4.88 XMIL (4.7-6.1); RDW 19.8 % (11.5-14.5); WBC 11.72 X1000 (4.8-10.8)
[2018-06-07 05:33] LABS: MAGNESIUM 2.4 mg/dL (1.5-2.7); PREALBUMIN 17.2 mg/dL (20-40)
[2018-06-07 05:38] LABS: CREATININE 1.3 mg/dL (0.7-1.2)
--- NOTE | 2018-06-07 07:06 | Diag Imaging Result Doc PS360 ---
EXAM: CHEST-PORTABLE HISTORY: OG tube placement and vent protocol TECHNIQUE: Portable chest single view COMPARISON: 06/06/2018 FINDINGS: No change in the endotracheal tube. A nasogastric tube overlies the esophagus. I am unable to see the distal portion due to the technique and the location of the film. The heart is enlarged. There is pulmonary edema. There may be underlying infiltrates. There is a small left pleural effusion. IMPRESSION: No interval improvement. Electronically signed by Louis Beebe 06/07/2018 7:03 AM
--- NOTE | 2018-06-07 08:31 | Diag Imaging Result Doc PS360 ---
EXAM: CHEST/ABD TUBE PLACEMENT HISTORY: OGT placement TECHNIQUE: Chest abdomen COMPARISON: 5:46 AM FINDINGS: There is a nasogastric tube overlying the stomach. This appears to be in good position. Electronically signed by Louis Beebe 06/07/2018 8:29 AM
[2018-06-07] MEDS ORDERED: FENTANYL IV PRN (08:36)
[2018-06-07] MEDS: PERIDEX MT SCH ×3 (08:59→21:54)
[2018-06-07] MEDS: PROTONIX IV SCH (08:59)
[2018-06-07] MEDS: ASPIRIN PO SCH (09:02)
--- NOTE | 2018-06-07 10:20 | PROGRESS NOTE ---
DATE: 06/07/2018 INTERVAL HISTORY: His FiO2 was lowered to 70% and he has been tolerating that well with saturation of 93 to 94 percent. No other acute events overnight. His kidney function is worsening. We will continue with the diuretics when we discussed about putting in OG tube, advancing diet as per dietitian recommendation. OBJECTIVE: Vital signs: Temperature of 97.4 degrees, pulse of 79, respiratory rate 10, blood pressure 110/70, saturating 90% on 70% FiO2. General: Intubated. Not responding to verbal stimuli. He flickers to strong painful stimuli. Lungs: Air entry bilaterally equal. The chest wall is very thick and it is difficult to appreciate breath sounds and lung sounds properly. However, his wheezing has appeared to be improving. Mild decreased air entry in infrascapular region. Cardiovascular: S1, S2 normal. No murmur, rub, or gallop. Abdomen: Obese, soft, nontender. Extremities: Edema affecting scrotum and bilateral lower extremities extending up to thighs. Reflexes were difficult to be appreciated. Neurologic: Bilateral pupils equal, reacting to light. He flickers to painful stimuli on all extremities. However, it is difficult to elicit response and I discussed with the nursing team about decreasing propofol. INPUT AND OUTPUT: Suggests he was -3.3 L yesterday, -48 mL so far today. MICROBIOLOGY: His blood culture and sputum culture has no growth to date. IMAGING: Chest x-ray performed today suggests no interval improvement. ASSESSMENT: 1. Acute hypoxic respiratory failure and acute hypercarbic respiratory failure on chronic hypercarbic respiratory failure. 2. Bilateral lower lobe suspected pneumonia versus pulmonary edema and bilateral pleural effusion. 3. Acute cor pulmonale. 4. Severe pulmonary hypertension and sleep apnea. 5. Morbid obesity. 6. Previous history of deep venous thrombosis and pulmonary embolism in September [address] angiography of chest and ultrasound of lower extremities in December 2017. Not compliant with anticoagulation. PLAN: 1. Continue intubation with mechanical ventilation and propofol for sedation with decreasing the propofol as tolerated. I also ordered intravenous p.r.n. fentanyl for intermittent agitation. Continue chlorhexidine for pneumonia prophylaxis, pantoprazole for GI prophylaxis, enoxaparin for DVT prophylaxis. 2. Continue albuterol ipratropium nebulization every 4 hours for acute COPD exacerbation with methylprednisolone, intravenous antibiotics and intravenous Lasix for acute cor pulmonary. 3. If his culture remains negative, then tomorrow his antibiotics could be deescalate. Continue tube feeds and advance as tolerated. DISPOSITION: The patient remains in ICU for critical care. TIME SPENT: More than 30 minutes of time was spent in taking care of this critically ill patient. Yesterday, I had discussed with the patient's at bedside about his critical condition and had answered all of her questions. I had frankly told her that the patient might eventually because of his morbid obesity, sleep apnea and chronic obstructive pulmonary disease if he does not practice lifestyle modification from now on. cc: Sumeet Franklin MD
[2018-06-07] MEDS: VANCOMYCIN 1,800 MG in NS 250 ML IV SCH (16:51)
[2018-06-07] MEDS: LOVENOX SUBQ SCH (17:38)
--- NOTE | 2018-06-07 21:27 | PULMONOLOGY PROGRESS NOTE ---
DATE: 06/07/2018 SUBJECTIVE: The patient is sedated. He remains on mechanical ventilation. OBJECTIVE: Vital Signs: The patient has been afebrile for the last 24 hours. BP 124/81, heart rate 78, respiratory rate 11, oxygen saturation 90% on 70% FiO2. Intake 2172, output 2220. HEENT: Pupils are equal and reactive. Oropharynx appears clear. Neck: Supple. Chest: Reveals shallow breath sounds bilaterally with bilateral crackles. Cardiac exam: S1, S2. Abdomen: Obese and soft. : The patient continues to have significant scrotal edema and 2+ peripheral edema. LABORATORIES: Chest x-ray reveals cardiomegaly, pulmonary edema with small effusion and no improvement. Sodium 143, potassium 4.0, chloride 94, bicarbonate 40, BUN 27, creatinine 1.3, glucose 124. White blood count 11.7, hemoglobin 12.7, platelet count 267,000. Arterial blood gas: PH 7.44, pCO2 of 66, pO2 of 115. IMPRESSION: A 52-year-old with: 1. Morbid obesity with a body mass index greater than 56. 2. Chronic obstructive pulmonary disease with ongoing tobacco use. 3. Acute hypoxemic respiratory failure. 4. Acute hypercapnic respiratory failure. 5. Obstructive sleep apnea with noncompliance. 6. Acute cor pulmonale. 7. Pulmonary edema with total body fluid overload. DISCUSSION: A 52-year-old with problems outlined above. The patient is barely negative this morning, despite significant Lasix dosing. It is hoped that he has mild ATN associated with his initial illness and he will begin to diurese over the next 24 to 48 hours. If he develops progressive renal failure, he may require dialysis, but it is hoped that this can be avoided. RECOMMENDATION: 1. Continue ventilatory support. He continues to require significant amount of oxygen. 2. Continue diuresis as tolerated. 3. Continue DVT prophylaxis. 4. Continue bronchodilators. 5. Agree with tube feeds as you are doing. 6. Long-term prognosis is guarded given his weight and ongoing tobacco and cannabis use. TIME SPENT: Critical care, 30+ minutes. cc: Danish Garg MD
[2018-06-08] MEDS: SOLU-MEDROL IV SCH ×3 (01:32→17:34)
[2018-06-08] MEDS: DIPRIVAN 1% 1,000 MG/100 ML BOTTLE IV SCH ×10 (02:21→22:30)
[2018-06-08] MEDS: DUONEB (A & A) INH SCH ×5 (03:37→23:30)
[2018-06-08] MEDS: ZOSYN 3.375 GM in NS 50 ML IV SCH ×4 (03:40→20:16)
[2018-06-08] MEDS: LASIX IV SCH ×4 (03:59→20:26)
[2018-06-08 04:33] LABS: ALLEN TEST YES; BE 21.8 mmoll (-3.0-3.0); BLOOD TYPE ARTERIAL; HCO3-(ACT) 41.8 mmoll (20.0-26.0); METHB 1.1 % (0.0-1.5); O2(CT) 17.3 mL/dL (15.0-23.0); PO2(98.6) 64 mmHg (60-100); SAMPLE BLOOD; SAO2 93.8 % (95.0-100.0); SRATE 10 BPM; THB 13.5 g/dL (11.5-17.4); TVOL 650 mL; pH(98.6) 7.42 (7.35-7.45)
[2018-06-08 04:35] LABS: MODALITY VENTILATOR; PCO2(98.6) 79 mmHg (35-45)
[2018-06-08 05:11] LABS: HEMATOCRIT 44.1 % (42.0-52.0); HEMOGLOBIN 12.8 g/dL (14.0-18.0); MCH 26.7 PG (27-31); MCV 91.9 FL (81-99); MPV 11.2 FL (7.4-10.4); RBC 4.8 XMIL (4.7-6.1); RDW 19.8 % (11.5-14.5); WBC 9.22 X1000 (4.8-10.8)
[2018-06-08 05:38] LABS: AGAP 11; BUN 32 mg/dL (8-22); CHLORIDE 93 mmol/L (98-107); COSMO 294; CREATININE 1.1 mg/dL (0.7-1.2); ESTIMATED GFR > 60; GLUCOSE 135 mg/dL (70-104); POTASSIUM 4.1 mmol/L (3.5-5.1); SODIUM 143 mmol/L (136-145); TCO2 39 mmol/L (25-35)
--- NOTE | 2018-06-08 07:09 | Diag Imaging Result Doc PS360 ---
EXAM: CHEST-PORTABLE 06/08/2018 HISTORY: Vent protocol TECHNIQUE: AP portable at 0517 COMMENT: There is an endotracheal tube with its tip at the thoracic inlet and an NG tube which passes below the diaphragm. There are bilateral pleural effusions. There is hazy opacity in the lung bases particularly the right lower lobe. This is worse than on 06/07/2018. There is cardiomegaly and increased pulmonary vascularity. IMPRESSION: Pleural effusions and worsened pulmonary edema. Electronically signed by Gurpreet Hicks 06/08/2018 7:07 AM
[2018-06-08] MEDS: ASPIRIN PO SCH (08:41)
[2018-06-08] MEDS: PERIDEX MT SCH ×2 (08:41→20:26)
[2018-06-08] MEDS: PROTONIX IV SCH (08:41)
[2018-06-08] MEDS: VANCOMYCIN 1,800 MG in NS 250 ML IV SCH (10:08)
[2018-06-08 10:24] LABS: PCO2(98.6) 66 mmHg (35-45)
--- NOTE | 2018-06-08 12:54 | PROGRESS NOTE ---
DATE: 06/08/2018 SUBJECTIVE: Mr. Gonzalez is seen today in the ICU. He continues to be intubated and sedated on propofol. No family member was at the bedside. Per the nursing staff, night uneventful. OBJECTIVE: Vital Signs: Blood pressure is 141/90, pulse is 75, respirations are 19, temperature is 97.8 degrees, the patient was saturating about 91% on 60%. General: Mr. Gonzalez is a 52-year- old, morbidly obese, male. He is in bed, intubated and sedated. Mr. Gonzalez seems to be tolerating his mechanical ventilation. HEENT: Mucosa is pink and moist. Anicteric. Acyanotic. Neck: Supple. BMI is 55.4. Chest: Air entry is bilaterally reduced. No crepitations. No rhonchi. Some transmitted sounds from the ventilator. Cardiovascular: Regular rate and rhythm. Abdomen: Soft. It is distended. Bowel sounds present. Extremities: No pedal edema. There is some edema in the medial aspect of both thighs, and there is scrotal edema as well. There is edema on the lateral aspect of the abdominal wall. [employer] FIELD OPERATOR: The patient will move both lower extremities to painful stimulation. Pupils are reactive. LABORATORY DATA: WBC is 9.22, hemoglobin is 12.8, platelet count of 228. PH is 7.42, pCO2 is 79, PaO2 is 64. Chemistry is also reviewed and is unremarkable. ASSESSMENT: 1. Acute hypoxemic respiratory failure. The patient continues to be intubated. The patient's FiO2 this morning is 60%, which is gradually coming down. 2. Acute on chronic hypercarbic respiratory failure. 3. Bilateral lower lobe infiltrate suspicious for pneumonia versus pulmonary edema. Will continue management. 4. Obesity hypoventilation syndrome with sleep apnea. 5. Tobacco abuse with carboxyhemoglobinemia on presentation. Levels have stabilized. 6. Nutrition and needs. The patient is tolerating the tube feeds. In general, Mr. Gonzalez continues to be tolerating tube feeding and mechanical ventilation. He is being seen by Pulmonary Medicine. Will follow up with their further recommendations. cc: Jorge Wiley MD [facility]
[2018-06-08] MEDS: LOVENOX SUBQ SCH (17:34)
--- NOTE | 2018-06-08 22:10 | PULMONOLOGY PROGRESS NOTE ---
DATE: 06/08/2018 SUBJECTIVE: The patient is sedated but arousable. His is at the bedside. She reports she also continues to smoke. OBJECTIVE: Intake 2262, output 4725. HEENT: Pupils are equal and reactive. Oropharynx is clear. Neck: Supple. Chest: Reveals coarse crackles bilaterally. Cardiac exam: S1, S2. Abdomen: Obese and soft. Extremities: Reveal some decreased edema. Genitourinary: Reveals some decreased scrotal edema. LABORATORIES AND X-RAYS: Chest x-ray reveals pleural effusions and ongoing pulmonary edema. White blood count 9.22, hemoglobin 12.8, platelet count 228,000. Sodium 143, potassium 4.1, chloride 93, bicarbonate 39, BUN 32, creatinine 1.1. Arterial blood gas reveals a pH of 7.42, pCO2 of 79, pO2 of 64 on 70% FiO2. IMPRESSION: A 61-year-old with: 1. Morbid obesity and a body mass index greater than 55. 2. Chronic obstructive pulmonary disease with ongoing tobacco use. 3. Acute hypoxemic and acute hypercapnic respiratory failure. 4. Obstructive sleep apnea with noncompliance. 5. Acute cor pulmonale. 6. Pulmonary edema with total body fluid overload. DISCUSSION: A 59-year-old with problems outlined above. His urine output was better for the last 24 hours than the previous 24 hours. He continues to have significant pulmonary edema, and he continues to require an FiO2 of 70%. Hopefully, we will continue to diurese with decrease in his AA gradient. RECOMMENDATIONS: 1. Continue current ventilatory support and wean FiO2 as tolerated. 2. Continue diuresis as tolerated. 3. Continue DVT prophylaxis. 4. Continue bronchodilators. 5. Continue tube feeds. 6. Encourage the patient and his about the needs to discontinue all tobacco products and to lose weight. Time spent in critical care management: 30+ minutes cc: Danish Garg MD [facility]Matt
[2018-06-09] MEDS: DIPRIVAN 1% 1,000 MG/100 ML BOTTLE IV SCH ×10 (00:22→22:44)
[2018-06-09] MEDS: SOLU-MEDROL IV SCH ×3 (01:30→18:06)
[2018-06-09] MEDS: ZOSYN 3.375 GM in NS 50 ML IV SCH ×4 (02:17→20:44)
[2018-06-09] MEDS: LASIX IV SCH ×4 (02:45→20:44)
[2018-06-09] MEDS: DUONEB (A & A) INH SCH ×6 (03:27→23:43)
[2018-06-09] MEDS: VANCOMYCIN 1,800 MG in NS 250 ML IV SCH ×2 (04:45→21:19)
[2018-06-09 05:07] LABS: ALLEN TEST YES; BE 25.8 mmoll (-3.0-3.0); BLOOD TYPE ARTERIAL; METHB 0.5 % (0.0-1.5); O2(CT) 18.2 mL/dL (15.0-23.0); O2HB 96.3 % (95.0-99.0); PO2(98.6) 95 mmHg (60-100); SAMPLE BLOOD; SAO2 100.1 % (95.0-100.0); SRATE 10 BPM; THB 13.4 g/dL (11.5-17.4); TVOL 650 mL; pH(98.6) 7.43 (7.35-7.45)
[2018-06-09 05:09] LABS: MODALITY VENTILATOR; PCO2(98.6) 84 mmHg (35-45)
[2018-06-09 05:55] LABS: HEMATOCRIT 45.6 % (42.0-52.0); HEMOGLOBIN 13.1 g/dL (14.0-18.0); MCH 26.7 PG (27-31); MCHC 28.7 g/dL (33-37); MCV 92.9 FL (81-99); MPV 10.7 FL (7.4-10.4); RBC 4.91 XMIL (4.7-6.1); RDW 19.7 % (11.5-14.5); WBC 7.03 X1000 (4.8-10.8)
[2018-06-09 06:03] LABS: INR 1.02; PROTIME 14.2 Seconds (11.0-16.0)
[2018-06-09 06:31] LABS: ESTIMATED GFR > 60
[2018-06-09 06:34] LABS: AGAP 8; BUN 33 mg/dL (8-22); CALCIUM 9.1 mg/dL (8.8-10.2); CHLORIDE 90 mmol/L (98-107); COSMO 297; GLUCOSE 156 mg/dL (70-104); POTASSIUM 3.7 mmol/L (3.5-5.1); SODIUM 144 mmol/L (136-145); TCO2 46 mmol/L (25-35)
--- NOTE | 2018-06-09 07:28 | Diag Imaging Result Doc PS360 ---
EXAM: CHEST-PORTABLE INDICATION: Vent protocol TECHNIQUE: One view COMPARISON: 06/08/2018 FINDINGS: Support tubes and lines are in stable positions. Inspiration is suboptimal. Pulmonary edema is stable to marginally improved as compared to the previous study. No new consolidation is identified. Cardiac silhouette is stable. IMPRESSION: Stable to marginal improvement of pulmonary edema. Electronically signed by Anastacio Mercedes 06/09/2018 7:26 AM
[2018-06-09] MEDS: PROTONIX IV SCH (07:56)
[2018-06-09] MEDS ORDERED: NS 250 ML ONE (08:45)
[2018-06-09] MEDS: PERIDEX MT SCH ×2 (09:13→20:44)
[2018-06-09] MEDS: ASPIRIN PO SCH (10:29)
[2018-06-09] MEDS: REGLAN IV SCH ×2 (12:00→18:29)
[2018-06-09 17:35] LABS: ALLEN TEST YES; BLOOD TYPE ARTERIAL; HCO3-(ACT) 47.4 mmoll (20.0-26.0); METHB 1.4 % (0.0-1.5); O2(CT) 18.7 mL/dL (15.0-23.0); O2HB 93.4 % (95.0-99.0); PO2(98.6) 74 mmHg (60-100); SAMPLE BLOOD; SAO2 96.7 % (95.0-100.0); SRATE 10 BPM; THB 14.2 g/dL (11.5-17.4); TVOL 650 mL
[2018-06-09 17:38] LABS: MODALITY VENTILATOR; PCO2(98.6) 79 mmHg (35-45); pH(98.6) 7.48 (7.35-7.45)
[2018-06-09] MEDS: LOVENOX SUBQ SCH (18:07)
--- NOTE | 2018-06-09 22:11 | PROGRESS NOTE ---
DATE: 06/09/2018 SUBJECTIVE: The patient is currently sedated on the ventilator. No acute events noted overnight. OBJECTIVE: Vital Signs: Temperature 98.6 degrees, blood pressure 134/87, heart rate 75, respirations 14, O2 saturation 93% on the mechanical ventilator. General: This is a morbidly obese male currently sedated on the ventilator. HEENT: Head normocephalic, atraumatic. Heart: S1, S2 normal. Regular rate and rhythm. Lungs: Equal air entry bilaterally. Diminished breath sounds at the bases. Abdomen: Positive bowel sounds. Soft, obese, nontender, nondistended. Extremities: 3+ edema with anasarca. Neurologic: The patient is currently sedated on the ventilator. LABS: ABG with pH of 7.48, pCO2 of 79, pO2 of 74, bicarb 47. White blood cell count 7, hemoglobin 13, hematocrit 45, platelets 213,000. Sodium 144, potassium 3.7, chloride 90, CO2 of 46, BUN 33, creatinine 1. Glucose 156, calcium 9.1. IMAGING: Chest x-ray shows pulmonary edema. ASSESSMENT AND PLAN: 1. Acute hypoxemic and hypercapnic respiratory failure. The patient has chronic obstructive pulmonary disease and pulmonary edema. Continue with ventilator management as directed by the parking garage manager. 2. Acute chronic obstructive pulmonary disease exacerbation. Continue on IV steroids, bronchodilator therapy, antibiotics, and ventilator support. 3. Acute pulmonary edema. Continue with diuretic therapy. The patient is responding well to the diuretics. We will monitor the renal function closely as well. 4. Morbid obesity. Aware. 5. Suspected obstructive sleep apnea. Aware. 6. Nutrition. The patient is on tube feeds. 7. Hypertension. Continue on Lopressor. 8. Gastrointestinal prophylaxis. Continue on Protonix. 9. Deep vein thrombosis prophylaxis. Continue on Lovenox. cc: Kathryn Covarrubias MD
[2018-06-10] MEDS: SOLU-MEDROL IV SCH ×3 (00:47→17:11)
[2018-06-10] MEDS: DIPRIVAN 1% 1,000 MG/100 ML BOTTLE IV SCH ×13 (00:47→22:45)
[2018-06-10] MEDS: REGLAN IV SCH ×3 (02:45→18:04)
[2018-06-10] MEDS: ZOSYN 3.375 GM in NS 50 ML IV SCH ×4 (02:45→19:54)
[2018-06-10] MEDS: LASIX IV SCH ×4 (02:45→20:03)
[2018-06-10] MEDS: DUONEB (A & A) INH SCH ×6 (03:31→23:24)
[2018-06-10 05:34] LABS: BASO# 0.01 X1000 (0.0-0.2); BASO% 0.1 % (0.0-0.8); HEMATOCRIT 47.6 % (42.0-52.0); HEMOGLOBIN 13.8 g/dL (14.0-18.0); IMM GRAN# 0.02 X1000 (0.0-0.04); IMM GRAN% 0.2 % (0.0-0.5); LYMPH# 0.37 X1000 (1.2-3.4); LYMPH% 3.7 % (20.5-51.1); MCH 26.1 PG (27-31); MCV 90.2 FL (81-99); MONO# 0.88 X1000 (0.11-0.59); MONO% 8.9 % (1.7-9.3); MPV 10.9 FL (7.4-10.4); NEUT# 8.62 X1000 (1.4-6.5); NEUT% 87.1 % (42.2-75.2); PLT 231 X1000 (130-400); RBC 5.28 XMIL (4.7-6.1); RDW 19.3 % (11.5-14.5)
[2018-06-10 05:47] LABS: ALLEN TEST YES; BE 25.8 mmoll (-3.0-3.0); BLOOD TYPE ARTERIAL; METHB 1.1 % (0.0-1.5); O2(CT) 20.5 mL/dL (15.0-23.0); O2HB 95.5 % (95.0-99.0); PO2(98.6) 92 mmHg (60-100); SAMPLE BLOOD; SAO2 98.3 % (95.0-100.0); SRATE 14 BPM; THB 15.2 g/dL (11.5-17.4); TVOL 650 mL
[2018-06-10 05:52] LABS: MODALITY VENTILATOR; PCO2(98.6) 70 mmHg (35-45)
[2018-06-10 05:59] LABS: ESTIMATED GFR > 60
[2018-06-10 06:01] LABS: LYMPHS 10 % (21-51); SEGS 90 % (42-75)
[2018-06-10 06:09] LABS: AGAP 10; ALB/GLOB RATIO 0.9; ALBUMIN 3.5 g/dL (3.5-5.0); ALKALINE PHOSPHATASE 94 U/L (32-122); BUN 37 mg/dL (8-22); CALCIUM 8.7 mg/dL (8.8-10.2); CHLORIDE 90 mmol/L (98-107); COSMO 302; GLUCOSE 151 mg/dL (70-104); GOT 33 U/L (10-34); GPT 44 U/L (10-44); POTASSIUM 3.6 mmol/L (3.5-5.1); SODIUM 146 mmol/L (136-145); TCO2 46 mmol/L (25-35); TOTAL PROTEIN 7.6 g/dL (6.3-8.3)
--- NOTE | 2018-06-10 07:16 | Diag Imaging Result Doc PS360 ---
EXAM: CHEST-PORTABLE 06/10/2018 HISTORY: Vent protocol TECHNIQUE: AP portable at 0552 COMMENT: There is an endotracheal tube with its tip at thoracic inlet and an NG tube with its tip below the diaphragm. There is blunting of both costophrenic angles. There is cardiomegaly. There is retrocardiac opacity bilaterally which may be due to atelectasis. Hazy opacity over the lower lung boggs present on 06/09/2018 has improved slightly. IMPRESSION: Cardiomegaly with bilateral pleural effusions. Slightly improved pulmonary edema. Bilateral lower lobe atelectasis. Electronically signed by Gurpreet Hicks 06/10/2018 7:13 AM
[2018-06-10] MEDS: PROTONIX IV SCH (07:46)
[2018-06-10] MEDS: PRINIVIL FT SCH (08:34)
[2018-06-10] MEDS: ASPIRIN PO SCH (08:34)
[2018-06-10] MEDS: PERIDEX MT SCH ×2 (09:09→20:03)
[2018-06-10 14:55] LABS: HEMOGLOBIN A1C 6.1 % (4.8-6.0)
[2018-06-10] MEDS: VANCOMYCIN 1,800 MG in NS 250 ML IV SCH (16:20)
[2018-06-10] MEDS: LOVENOX SUBQ SCH (17:11)
--- NOTE | 2018-06-10 21:44 | PROGRESS NOTE ---
DATE: 06/10/2018 SUBJECTIVE: The patient is currently intubated and sedated. No acute events noted overnight. OBJECTIVE: Vital Signs: Temperature 97.9, blood pressure 124/77, heart rate 74, respirations 14. 02 saturation is 100% on the mechanical ventilator. Intake 3 L, output 6.3 L. General: This is a [id number] male, currently sedated on the ventilator. HEENT: Head is normocephalic atraumatic. Heart: S1, S2 normal. Regular rate and rhythm. Lungs: Diminished breath sounds bilaterally. No wheezing. No rales. Abdomen: Positive bowel sounds. Soft, nontender, obese. Extremities: There is 2+ edema. Neurologic: The patient is currently sedated on the ventilator. LABS: White blood cell count 9.9, hemoglobin 13, hematocrit 47, platelets 231. ABG: pH of 7.5, pCO2 of 70, PO2 of 92, bicarb of 45. Sodium 146, potassium 3.6, chloride 90, CO2 46. BUN is 37, creatinine 1, glucose 151. ProBNP 743. Chest x-ray shows slightly improved pulmonary edema. Bilateral lower lobe atelectasis. Bilateral pleural effusions. ASSESSMENT/PLAN: 1. Acute hypoxemic and hypercapnic respiratory failure. Continue ventilatory management as directed by the [employer] exchange administrator. 2. Acute pulmonary edema. The patient is alkalotic. He has had a very good response to the diuretic therapy, so will adjust the diuretic dosage. 3. Metabolic alkalosis with respiratory acidosis. Consider diamox. Will decrease diuretic dosage. 4. Acute chronic obstructive pulmonary disease exacerbation. Continue on IV steroids, bronchodilator therapy, antibiotics, and ventilator support. 5. Morbid obesity. Aware. 6. Suspected obstructive sleep apnea. Aware. 7. Nutrition. The patient is currently on tube feeds. 8. Diabetes mellitus type 2. Will start the patient on sliding scale insulin. This appears to be a new diagnosis for the patient, according to the . 9. Hypertension. Continue on lisinopril and Lopressor. 10. Gastrointestinal prophylaxis. Continue on Protonix. 11. Deep vein thrombosis prophylaxis. Continue on Lovenox. 12. Disposition. The patient's was updated on the patient's status at the bedside this morning. cc: Kathryn Covarrubias MD [facility]Matt
[2018-06-10] MEDS: HUMULIN R SUBQ SCH (22:19)
[2018-06-11] MEDS: SOLU-MEDROL IV SCH ×3 (00:45→17:10)
[2018-06-11] MEDS: DIPRIVAN 1% 1,000 MG/100 ML BOTTLE IV SCH ×13 (00:45→23:16)
[2018-06-11] MEDS: REGLAN IV SCH ×3 (02:32→17:59)
[2018-06-11] MEDS: ZOSYN 3.375 GM in NS 50 ML IV SCH ×4 (02:33→20:52)
[2018-06-11] MEDS: DUONEB (A & A) INH SCH ×6 (03:27→23:35)
[2018-06-11 05:07] LABS: HEMATOCRIT 47.7 % (42.0-52.0); HEMOGLOBIN 13.9 g/dL (14.0-18.0); IMM GRAN# 0.02 X1000 (0.0-0.04); IMM GRAN% 0.2 % (0.0-0.5); LYMPH# 0.46 X1000 (1.2-3.4); LYMPH% 3.6 % (20.5-51.1); MCH 26.3 PG (27-31); MCHC 29.1 g/dL (33-37); MCV 90.2 FL (81-99); MONO% 5.5 % (1.7-9.3); MPV 10.9 FL (7.4-10.4); NEUT% 90.7 % (42.2-75.2); PLT 238 X1000 (130-400); RBC 5.29 XMIL (4.7-6.1); RDW 19.5 % (11.5-14.5); WBC 12.78 X1000 (4.8-10.8)
[2018-06-11 05:27] LABS: ESTIMATED GFR > 60
[2018-06-11 05:28] LABS: AGAP 12; ALB/GLOB RATIO 0.8; ALBUMIN 3.4 g/dL (3.5-5.0); ALKALINE PHOSPHATASE 92 U/L (32-122); BUN 39 mg/dL (8-22); CALCIUM 9.9 mg/dL (8.8-10.2); CHLORIDE 92 mmol/L (98-107); COSMO 305; CREATININE 0.9 mg/dL (0.7-1.2); GLUCOSE 156 mg/dL (70-104); GOT 29 U/L (10-34); GPT 43 U/L (10-44); POTASSIUM 3.9 mmol/L (3.5-5.1); SODIUM 147 mmol/L (136-145); TCO2 43 mmol/L (25-35); TOTAL BILIRUBIN 0.93 mg/dL (0.20-1.00); TOTAL PROTEIN 7.6 g/dL (6.3-8.3)
[2018-06-11 05:33] LABS: ALLEN TEST YES; BE 24.5 mmoll (-3.0-3.0); BLOOD TYPE ARTERIAL; METHB 0.9 % (0.0-1.5); O2(CT) 19.7 mL/dL (15.0-23.0); O2HB 95.9 % (95.0-99.0); PO2(98.6) 87 mmHg (60-100); SAMPLE BLOOD; SAO2 98.6 % (95.0-100.0); SRATE 14 BPM; THB 14.6 g/dL (11.5-17.4); TVOL 650 mL
[2018-06-11 05:38] LABS: MODALITY VENTILATOR; PCO2(98.6) 57 mmHg (35-45); pH(98.6) 7.56 (7.35-7.45)
[2018-06-11] MEDS ORDERED: LASIX IV SCH (06:00)
[2018-06-11] MEDS: HUMULIN R SUBQ SCH ×4 (06:14→20:52)
--- NOTE | 2018-06-11 07:32 | Diag Imaging Result Doc PS360 ---
EXAM: CHEST-PORTABLE 06/11/2018 HISTORY: Vent protocol TECHNIQUE: AP portable at 0515 COMMENT: There is an NG tube with its tip below the diaphragm. There is an endotracheal tube with its tip slightly below the thoracic inlet. There is some blunting of costophrenic angles. There is cardiomegaly. There may be mild interstitial pulmonary edema. Compared to 06/10/2018 this has not changed appreciably. IMPRESSION: Cardiomegaly pulmonary edema and pleural effusions. Electronically signed by Gurpreet Hicks 06/11/2018 7:30 AM
[2018-06-11] MEDS: PROTONIX IV SCH (08:24)
[2018-06-11] MEDS: SODIUM CHLORIDE 0.9% INJ SCH (08:24)
[2018-06-11] MEDS: PERIDEX MT SCH ×2 (08:24→20:52)
[2018-06-11] MEDS: ASPIRIN PO SCH (08:24)
[2018-06-11] MEDS: PRINIVIL FT SCH (08:24)
[2018-06-11] MEDS: DIAMOX PO SCH ×2 (08:24→20:52)
[2018-06-11] MEDS: VANCOMYCIN 1,800 MG in NS 250 ML IV SCH (10:34)
[2018-06-11] MEDS: LASIX IV SCH (17:10)
[2018-06-11] MEDS: LOVENOX SUBQ SCH (17:11)
--- NOTE | 2018-06-11 19:03 | PROGRESS NOTE ---
DATE: 06/11/2018 SUBJECTIVE: The patient remains sedated on the ventilator. He is afebrile. No acute events noted overnight. OBJECTIVE: Vital Signs: Temperature 98.6 degrees, blood pressure 109/71, heart rate 86, respirations 14, O2 saturation 95% on mechanical ventilator, input 3.7, output 5 L. General: This is a morbidly obese male lying in bed currently sedated on the ventilator. Head: Normocephalic, atraumatic. Heart: S1, S2 normal. Regular rate and rhythm. Lungs: Diminished breath sounds bilaterally. No wheezing, no rales, no crackles. Abdomen: Distended, obese. Positive bowel sounds. Extremities: 2+ edema. No cyanosis, no calf tenderness. Neuro: The patient is currently sedated on the ventilator. LABS: White blood cell count 12, hemoglobin 13, hematocrit 47, platelets 238,000. ABG pH of 7.56, pCO2 57, PO2 87, bicarb 44. Sodium 147, potassium 3.9, chloride 92, CO2 43, BUN 39, creatinine 0.9, glucose 156. ProBNP 589. Chest x-ray shows cardiomegaly, pulmonary edema and pleural effusions. ASSESSMENT AND PLAN: 1. Acute hypoxemic and hypercapnic respiratory failure. The patient continues to require ventilatory support. Continue to treat the underlying issues. Further management as per the director data processing. 2. Acute pulmonary edema. The patient is diuresing well on Lasix. Continue to monitor closely for improvement. 3. Metabolic alkalosis with respiratory acidosis. Will start Diamox today. 4. Acute chronic obstructive pulmonary disease exacerbation. Continue on IV steroids, bronchodilator therapy, antibiotics and ventilatory support. 5. Morbid obesity. Aware. 6. Nutrition. The patient is tolerating tube feeds. 7. Diabetes mellitus type 2. Continue with sliding scale insulin. 8. Hypertension. Controlled. Continue on lisinopril and Lopressor. 9. Hypernatremia. Will increase the free water flushes via the NG tube to 200 mL every 6 hours. 10. Gastrointestinal prophylaxis. Continue on IV Protonix. 11. Deep vein thrombosis prophylaxis. Continue on Lovenox. cc: Kathryn Covarrubias MD [facility]
[2018-06-12] MEDS: DIPRIVAN 1% 1,000 MG/100 ML BOTTLE IV SCH ×13 (00:51→23:26)
[2018-06-12] MEDS: SOLU-MEDROL IV SCH ×3 (01:48→17:39)
[2018-06-12] MEDS: ZOSYN 3.375 GM in NS 50 ML IV SCH ×4 (01:48→21:49)
[2018-06-12] MEDS: REGLAN IV SCH ×2 (02:55→17:22)
[2018-06-12] MEDS: VANCOMYCIN 1,800 MG in NS 250 ML IV SCH ×2 (03:00→21:49)
[2018-06-12] MEDS: DUONEB (A & A) INH SCH ×6 (03:24→23:04)
[2018-06-12 04:47] LABS: ALLEN TEST YES; BE 16.1 mmoll (-3.0-3.0); BLOOD TYPE ARTERIAL; HCO3-(ACT) 37.5 mmoll (20.0-26.0); METHB 1.1 % (0.0-1.5); O2(CT) 19.6 mL/dL (15.0-23.0); O2HB 96.6 % (95.0-99.0); PO2(98.6) 132 mmHg (60-100); SAMPLE BLOOD; SRATE 14 BPM; THB 14.3 g/dL (11.5-17.4); TVOL 650 mL; pH(98.6) 7.47 (7.35-7.45)
[2018-06-12 04:49] LABS: MODALITY VENTILATOR; PCO2(98.6) 59 mmHg (35-45)
[2018-06-12 04:52] LABS: BASO# 0.01 X1000 (0.0-0.2); BASO% 0.1 % (0.0-0.8); HEMATOCRIT 46.4 % (42.0-52.0); HEMOGLOBIN 13.7 g/dL (14.0-18.0); IMM GRAN# 0.11 X1000 (0.0-0.04); IMM GRAN% 0.9 % (0.0-0.5); LYMPH% 4.6 % (20.5-51.1); MCH 26.3 PG (27-31); MCHC 29.5 g/dL (33-37); MCV 89.2 FL (81-99); MONO# 0.93 X1000 (0.11-0.59); MONO% 7.2 % (1.7-9.3); MPV 11.1 FL (7.4-10.4); NEUT# 11.26 X1000 (1.4-6.5); NEUT% 87.2 % (42.2-75.2); PLT 242 X1000 (130-400); RDW 19.3 % (11.5-14.5); WBC 12.91 X1000 (4.8-10.8)
[2018-06-12 04:54] LABS: AGAP 8; ALB/GLOB RATIO 0.9; ALBUMIN 3.4 g/dL (3.5-5.0); ALKALINE PHOSPHATASE 88 U/L (32-122); BUN 46 mg/dL (8-22); CALCIUM 9.2 mg/dL (8.8-10.2); CHLORIDE 91 mmol/L (98-107); COSMO 290; CREATININE 0.9 mg/dL (0.7-1.2); ESTIMATED GFR > 60; GLUCOSE 140 mg/dL (70-104); GOT 31 U/L (10-34); GPT 45 U/L (10-44); POTASSIUM 3.7 mmol/L (3.5-5.1); SODIUM 138 mmol/L (136-145); TCO2 39 mmol/L (25-35); TOTAL BILIRUBIN 0.95 mg/dL (0.20-1.00); TOTAL PROTEIN 7.2 g/dL (6.3-8.3)
[2018-06-12 05:28] LABS: BANDS 4 % (0-1); LYMPHS 6 % (21-51); SEGS 90 % (42-75)
[2018-06-12] MEDS: LASIX IV SCH ×2 (05:56→17:21)
[2018-06-12] MEDS: HUMULIN R SUBQ SCH ×4 (06:16→21:00)
--- NOTE | 2018-06-12 06:51 | Diag Imaging Result Doc PS360 ---
EXAM: CHEST-PORTABLE HISTORY: Vent protocol TECHNIQUE: Portable chest single view COMPARISON: 06/11/2018 FINDINGS: No change in the endotracheal tube, nasogastric tube, or right-sided PICC line. The heart remains enlarged. Pulmonary edema persists. There are small pleural effusions with basilar atelectasis. IMPRESSION: No interval improvement. Electronically signed by Louis Beebe 06/12/2018 6:48 AM
[2018-06-12] MEDS: PERIDEX MT SCH ×2 (08:47→21:49)
[2018-06-12] MEDS: ASPIRIN PO SCH (08:48)
[2018-06-12] MEDS: DIAMOX PO SCH (08:48)
[2018-06-12] MEDS: PROTONIX IV SCH (08:48)
[2018-06-12] MEDS: PRINIVIL FT SCH (08:49)
--- NOTE | 2018-06-12 11:07 | PROGRESS NOTE ---
DATE: 06/12/2018 SUBJECTIVE: Patient has no focal complaints. OBJECTIVE: Blood pressure is 109/70, heart rate 81, respiratory of rate 20. He is intubated, sedated. Cardiovascular: Regular rate and rhythm. Pulmonary: Diminished throughout but no wheezing. GI was soft, nontender, nondistended. Bowel sounds were positive. He has pitting edema 1+ in his lower extremities. White count is 12, hemoglobin and hematocrit 13 and 46, platelets 242,000. PH 7.47, pCO2 59, PaO2 132. BUN and creatinine of 46 and 0.9. Sugars 120s, 140s, 130s, not too bad. Chest x-ray shows enlarged heart, pulmonary edema, small pleural effusions. PROBLEM LIST: 1. Acute hypoxic and hypercapnic respiratory failure. We will continue treatment and follow. Pulmonary is managing. Not sure where we are in the weaning process. His oxygen, he is on 80% so not quite there yet I guess. 2. Pulmonary edema. He is on diuretics. Urine output has been good 4200, 5050, 6375 the last several days so continue that and follow his heart failure. He had an echocardiogram in December which showed an ejection fraction of 55% so this may be diastolic failure. He may have some right-sided heart failure though with obstructive sleep apnea versus right-sided versus cor pulmonale. He has some hypertension so we will continue diuretics and follow. 3. Type 2 diabetes, on sliding scale insulin. Blood sugars are pretty well controlled. 4. Hypertension. That is also stabilized. 5. Hypernatremia. His sodium is improved. I am going to work on decreasing his steroids a bit. His wheezing seems better. 6. Disposition, pending extubation. We will continue to follow. Antibiotic-blakely, he is on vancomycin and Zosyn. Cultures have otherwise been negative. cc: Ronan Allison MD
[2018-06-12] MEDS: LOVENOX SUBQ SCH (17:22)
--- NOTE | 2018-06-12 19:19 | PULMONOLOGY PROGRESS NOTE ---
DATE: 06/12/2018 SUBJECTIVE: General: The patient is sedated. He remains on mechanical ventilation. Current FiO2 is 80% HEENT: Pupils are equal and reactive. Oropharynx is clear. Neck: Supple. Chest: Reveals diminished breath sounds both lung bases with prolonged expiratory phase. Cardiac exam: S1, S2. Abdomen: Obese. : Reveals decreasing scrotal edema. Extremities: Reveal 1+ peripheral edema. LABORATORIES: Chest x-ray reveals bilateral pleural effusions with cardiomegaly and pulmonary edema. White blood count 12.9, hemoglobin 13.7, platelet count 242,000. Sodium 138, potassium 3.7, chloride 91, bicarbonate 39, BUN 46, creatinine 0.9. Arterial blood gas reveals a pH of 7.47, pCO2 of 59, pO2 of 132. IMPRESSION: A 52-year-old with: 1. Chronic obstructive pulmonary disease with ongoing tobacco use at the time of admission. 2. Acute hypoxemic and acute hypercapnic respiratory failure. 3. Morbid obesity with a body mass index greater than 50. 4. Obstructive sleep apnea with noncompliance. 5. Pulmonary edema. 6. Pleural effusions. 7. Acute cor pulmonale. DISCUSSION: A 52-year-old with problems outlined above. The patient continues to require high oxygen concentrations and chest x-ray continues to reveal pulmonary edema and pleural effusions. He will need additional diuresis before his oxygen is likely to improve and he will tolerate extubation. He may require tracheostomy if he does not begin improving by the end of the week. RECOMMENDATIONS: 1. Continue current ventilatory support. 2. Continue diuresis as tolerated. 3. Discontinue Diamox. The patient will need an elevated serum bicarbonate level for successful extubation. 4. Decrease tube feed flushes to help decrease the amount of intake. 5. Continue bronchodilators. 6. Continue tube feeds. 7. Long-term, patient will need to lose weight and stop smoking if he is to have significant clinical improvement. Time spent in critical care management: 30+ minutes cc: MD TOMY Blue
[2018-06-13] MEDS: REGLAN IV SCH ×3 (01:03→17:24)
[2018-06-13] MEDS: SOLU-MEDROL IV SCH ×4 (01:03→17:24)
[2018-06-13] MEDS: DIPRIVAN 1% 1,000 MG/100 ML BOTTLE IV SCH ×6 (01:03→22:36)
[2018-06-13] MEDS: ZOSYN 3.375 GM in NS 50 ML IV SCH ×4 (02:58→21:09)
[2018-06-13] MEDS: DUONEB (A & A) INH SCH ×6 (03:02→23:30)
[2018-06-13 04:53] LABS: ALLEN TEST YES; BE 12.4 mmoll (-3.0-3.0); BLOOD TYPE ARTERIAL; HCO3-(ACT) 34.5 mmoll (20.0-26.0); METHB 1.1 % (0.0-1.5); O2(CT) 18.9 mL/dL (15.0-23.0); O2HB 94.4 % (95.0-99.0); PO2(98.6) 80 mmHg (60-100); SAMPLE BLOOD; SAO2 97.7 % (95.0-100.0); SRATE 10 BPM; THB 14.2 g/dL (11.5-17.4); TVOL 650 mL
[2018-06-13 04:54] LABS: MODALITY VENTILATOR; PCO2(98.6) 65 mmHg (35-45)
[2018-06-13] MEDS: LASIX IV SCH ×2 (05:17→17:24)
[2018-06-13 06:00] LABS: EOS# 0.01 X1000 (0.0-0.7); EOS% 0.1 % (0.0-10.0); HEMATOCRIT 42.9 % (42.0-52.0); HEMOGLOBIN 13.7 g/dL (14.0-18.0); IMM GRAN# 0.03 X1000 (0.0-0.04); IMM GRAN% 0.3 % (0.0-0.5); LYMPH# 0.36 X1000 (1.2-3.4); LYMPH% 3.1 % (20.5-51.1); MCH 28.8 PG (27-31); MCHC 31.9 g/dL (33-37); MCV 90.1 FL (81-99); MONO# 0.79 X1000 (0.11-0.59); MONO% 6.7 % (1.7-9.3); MPV 12.1 FL (7.4-10.4); NEUT# 10.61 X1000 (1.4-6.5); NEUT% 89.8 % (42.2-75.2); PLT 247 X1000 (130-400); RBC 4.76 XMIL (4.7-6.1); RDW 18.9 % (11.5-14.5)
[2018-06-13 06:23] LABS: MAGNESIUM 2.9 mg/dL (1.5-2.7); PHOSPHORUS 3.7 mg/dL (2.7-4.5)
[2018-06-13 06:29] LABS: AGAP 8; ALB/GLOB RATIO 0.2; ALKALINE PHOSPHATASE 75 U/L (32-122); BUN 47 mg/dL (8-22); CALCIUM 8.5 mg/dL (8.8-10.2); CHLORIDE 86 mmol/L (98-107); COSMO 275; CREATININE 0.8 mg/dL (0.7-1.2); ESTIMATED GFR > 60; GLUCOSE 135 mg/dL (70-104); POTASSIUM 4.6 mmol/L (3.5-5.1); SODIUM 130 mmol/L (136-145); TCO2 36 mmol/L (25-35); TOTAL BILIRUBIN 0.71 mg/dL (0.20-1.00); TOTAL PROTEIN 6.8 g/dL (6.3-8.3)
[2018-06-13 06:48] LABS: GOT 38 U/L (10-34)
[2018-06-13 07:29] LABS: GPT 41 U/L (10-44)
[2018-06-13] MEDS: HUMULIN R SUBQ SCH ×4 (07:39→21:00)
--- NOTE | 2018-06-13 07:39 | Diag Imaging Result Doc PS360 ---
CHEST-PORTABLE - 06/13/2018 INDICATION: Vent protocol COMPARISON: 06/12/2018 FINDINGS: Support lines and tubes are stable. Stable bibasilar infiltrates or atelectasis. Stable cardiomegaly and pulmonary vascular congestion. No new infiltrates. IMPRESSION: No change from prior. Electronically signed by Mo Mackey 06/13/2018 7:37 AM
[2018-06-13] MEDS: SODIUM CHLORIDE 0.9% INJ SCH (08:32)
[2018-06-13] MEDS: ASPIRIN PO SCH (08:32)
[2018-06-13] MEDS: PERIDEX MT SCH ×2 (08:32→21:09)
[2018-06-13] MEDS: PROTONIX IV SCH (08:32)
[2018-06-13] MEDS ORDERED: FENTANYL IV PRN (09:25)
[2018-06-13] MEDS ORDERED: FENTANYL 1,000 MICROGM in NS 80 ML IV SCH ×2 (09:30→22:00)
[2018-06-13 10:06] LABS: ESTIMATED GFR > 60
[2018-06-13 10:07] LABS: AGAP 10; ALB/GLOB RATIO 0.9; ALBUMIN 3.5 g/dL (3.5-5.0); ALKALINE PHOSPHATASE 88 U/L (32-122); BUN 55 mg/dL (8-22); CALCIUM 9.4 mg/dL (8.8-10.2); CHLORIDE 93 mmol/L (98-107); COSMO 297; GLUCOSE 146 mg/dL (70-104); GOT 28 U/L (10-34); GPT 48 U/L (10-44); POTASSIUM 4.3 mmol/L (3.5-5.1); SODIUM 140 mmol/L (136-145); TCO2 37 mmol/L (25-35); TOTAL BILIRUBIN 0.77 mg/dL (0.20-1.00); TOTAL PROTEIN 7.4 g/dL (6.3-8.3); TRIGLYCERIDES 83 mg/dL (39-160)
[2018-06-13] MEDS: FENTANYL 1,000 MICROGM in NS 80 ML IV SCH ×3 (10:08→15:57)
[2018-06-13] MEDS: VANCOMYCIN 1,800 MG in NS 250 ML IV SCH (15:20)
[2018-06-13] MEDS: LOVENOX SUBQ SCH (17:24)
--- NOTE | 2018-06-13 17:25 | PULMONOLOGY PROGRESS NOTE ---
DATE: 06/13/2018 SUBJECTIVE: The patient is sedated. He continues to require increased oxygen amounts to maintain saturations. OBJECTIVE: Vital Signs: The patient has been afebrile for the last 24 hours. Blood pressure 92/58, heart rate 74, respiratory rate 20, oxygen saturation 94%. HEENT: Pupils are equal and reactive. Oropharynx is clear. Neck: Supple. Chest: Reveals markedly diminished breath sounds bilaterally. Cardiac: S1, S2. Abdomen: Obese and soft. Extremities: Reveal 1+ peripheral edema. LABORATORIES: Chest x-ray reveals bibasilar infiltrates/effusions with vascular congestion and cardiomegaly. Arterial blood gas reveals a pH of 7.40, pCO2 of 65, PO2 of 80. White blood count 11.80, hemoglobin 13.7, platelet count 247,000. Sodium 140, potassium 4.3, chloride 93, bicarbonate 37, BUN 55, creatinine 1.0, glucose 146. IMPRESSION: A 52-year-old with: 1. COPD with ongoing tobacco use. 2. Acute hypoxemic and hypercapnic respiratory failure. 3. Pulmonary edema. 4. Obesity with body mass index of greater than 50. 5. Pleural effusions. 6. Acute cor pulmonale. 7. Increasing BUN despite ongoing fluid overload. RECOMMENDATIONS: 1. Continue ventilatory support. 2. Diuresis as tolerated, although he continues to remain fluid overloaded. 3. Continue bronchodilators. We will add acetylcysteine. 4. Continue tube feeds. 5. Anticipate the need for tracheostomy. Time spent in critical care management: 30+ minutes cc: Danish Garg MD [facility]
[2018-06-13] MEDS ORDERED: FENTANYL 2,000 MICROGM in NS 160 ML IV SCH (18:00)
[2018-06-13] MEDS: MUCOMYST 20% INH SCH (19:25)
--- NOTE | 2018-06-13 19:34 | PROGRESS NOTE ---
DATE: 06/13/2018 SUBJECTIVE: The patient remains sedated on the ventilator. OBJECTIVE: Vital Signs: Temperature 98.6 degrees, blood pressure 92/59, heart rate 72, respirations 23, with O2 saturation 94% on the mechanical ventilator. Intake 3.8 L, output 3.6 L. General: This is a chronically ill-appearing, morbidly obese male, currently sedated on the ventilator. Head: Normocephalic, atraumatic. Heart: S1, S2 normal. Lungs: Equal air entry bilaterally. No crackles. No rales. Abdomen: Positive bowel sounds. Soft, obese. Extremities: 1+ edema bilaterally. Neurologic: The patient is currently sedated on the ventilator. LABS: White blood cell count 11, hemoglobin 13, hematocrit 42, platelets 247,000. ABG: PH 7.4, pCO2 of 65, pO2 80, bicarb 34. Sodium 140, potassium 4.3, chloride 93, CO2 37, BUN 65, creatinine 1, glucose 146. Chest x-ray shows no new infiltrates. Cardiomegaly and pulmonary vascular congestion present. ASSESSMENT AND PLAN: 1. Acute hypoxemic and hypercapnic respiratory failure. Management as per the commissioned security officer. 2. Acute pulmonary edema. The patient remains on diuretic therapy. Continue to monitor for improvement. 3. Acute on chronic diastolic CHF exacerbation. Continue with diuretic therapy. 4. Acute chronic obstructive pulmonary disease exacerbation. Continue on intravenous steroids, antibiotics, ventilatory support, and bronchodilator therapy. 5. Morbid obesity. Aware. 6. Nutrition. Continue on tube feeds. 7. Diabetes mellitus type 2. Continue on sliding scale insulin. 8. Gastrointestinal prophylaxis. Continue on intravenous Protonix. 9. Deep vein thrombosis prophylaxis. Continue on Lovenox. cc: Kathryn Covarrubias MD [facility]
[2018-06-13] MEDS ORDERED: DIPRIVAN 1% IV PRN (20:30)
[2018-06-13] MEDS ORDERED: LEVOPHED 8 MG in D5 1/2 NS 250 ML IV SCH (20:45)
[2018-06-14] MEDS: DIPRIVAN 1% 1,000 MG/100 ML BOTTLE IV SCH ×9 (02:37→22:54)
[2018-06-14] MEDS: REGLAN IV SCH ×3 (02:41→17:20)
[2018-06-14] MEDS: SOLU-MEDROL IV SCH ×3 (02:42→17:20)
[2018-06-14] MEDS: ZOSYN 3.375 GM in NS 50 ML IV SCH ×4 (02:43→20:53)
[2018-06-14] MEDS: DUONEB (A & A) INH SCH ×6 (03:30→23:41)
[2018-06-14] MEDS: LASIX IV SCH ×2 (04:49→17:20)
[2018-06-14 05:16] LABS: ALLEN TEST YES; BE 12.3 mmoll (-3.0-3.0); BLOOD TYPE ARTERIAL; HCO3-(ACT) 34.5 mmoll (20.0-26.0); METHB 1.4 % (0.0-1.5); O2HB 96.2 % (95.0-99.0); PO2(98.6) 125 mmHg (60-100); SAMPLE BLOOD; SAO2 99.4 % (95.0-100.0); SRATE 10 BPM; THB 14.7 g/dL (11.5-17.4); TVOL 650 mL; pH(98.6) 7.38 (7.35-7.45)
[2018-06-14 05:18] LABS: MODALITY VENTILATOR; PCO2(98.6) 69 mmHg (35-45)
[2018-06-14 06:17] LABS: EOS# 0.02 X1000 (0.0-0.7); EOS% 0.2 % (0.0-10.0); HEMATOCRIT 46.2 % (42.0-52.0); HEMOGLOBIN 13.3 g/dL (14.0-18.0); IMM GRAN# 0.04 X1000 (0.0-0.04); IMM GRAN% 0.3 % (0.0-0.5); LYMPH% 5.5 % (20.5-51.1); MCH 26.4 PG (27-31); MCHC 28.8 g/dL (33-37); MCV 91.8 FL (81-99); MONO# 1.47 X1000 (0.11-0.59); MONO% 11.5 % (1.7-9.3); MPV 12.1 FL (7.4-10.4); NEUT# 10.54 X1000 (1.4-6.5); NEUT% 82.5 % (42.2-75.2); PLT 222 X1000 (130-400); RBC 5.03 XMIL (4.7-6.1); RDW 18.6 % (11.5-14.5); WBC 12.77 X1000 (4.8-10.8)
[2018-06-14 06:37] LABS: ESTIMATED GFR > 60
[2018-06-14 06:40] LABS: AGAP 11; ALB/GLOB RATIO 0.8; ALBUMIN 3.2 g/dL (3.5-5.0); ALKALINE PHOSPHATASE 84 U/L (32-122); BUN 60 mg/dL (8-22); CALCIUM 9.2 mg/dL (8.8-10.2); CHLORIDE 97 mmol/L (98-107); COSMO 306; CREATININE 0.9 mg/dL (0.7-1.2); GLUCOSE 136 mg/dL (70-104); GOT 37 U/L (10-34); GPT 63 U/L (10-44); POTASSIUM 4.1 mmol/L (3.5-5.1); SODIUM 144 mmol/L (136-145); TCO2 36 mmol/L (25-35); TOTAL BILIRUBIN 0.71 mg/dL (0.20-1.00)
--- NOTE | 2018-06-14 07:23 | Diag Imaging Result Doc PS360 ---
EXAM: CHEST-PORTABLE 06/14/2018 HISTORY: Vent protocol TECHNIQUE: AP portable at 0533 COMMENT: There is an endotracheal tube with its tip at the thoracic inlet and an NG tube which passes below the diaphragm. There is a PICC line on the right with its tip in the superior vena cava. There is hazy opacity in both lungs particularly in the lower lung boggs with obscuration of the hemidiaphragms. This is slightly worse on the right than on 06/13/2018. There is likely bilateral pleural fluid. IMPRESSION: Slightly worsened pulmonary edema. Cardiomegaly. Bilateral pleural effusions. Electronically signed by Gurpreet Hicks 06/14/2018 7:21 AM
[2018-06-14] MEDS: HUMULIN R SUBQ SCH ×4 (07:26→20:52)
[2018-06-14] MEDS: MUCOMYST 20% INH SCH ×2 (08:05→20:25)
[2018-06-14] MEDS: ASPIRIN PO SCH (08:22)
[2018-06-14] MEDS: PROTONIX IV SCH (08:22)
[2018-06-14] MEDS: PERIDEX MT SCH ×2 (08:22→20:53)
[2018-06-14] MEDS: VANCOMYCIN 1,800 MG in NS 250 ML IV SCH (09:34)
[2018-06-14] MEDS: LOVENOX SUBQ SCH (17:20)
--- NOTE | 2018-06-14 19:40 | PULMONOLOGY PROGRESS NOTE ---
DATE: 06/14/2018 SUBJECTIVE: The patient is sedated. The patient's labs came back yesterday and his triglyceride levels were acceptable, and propofol was re-initiated for hypotension following fentanyl. OBJECTIVE: Vital Signs: The patient has been afebrile for the last 24 hours. Blood pressure 106/67, heart rate 82, respiratory rate 15, oxygen saturation 91% on 100% FiO2. HEENT: Pupils are equal and reactive. Oropharynx is clear. Neck: Supple. Chest: Diminished breath sounds bilaterally. Abdomen: Obese and soft. Extremities: Decreased edema. LABORATORIES: White blood count 12.77, hemoglobin 13.3, platelet count 222,000. Arterial blood gas reveals pH 7.38, pCO2 of 69, pO2 of 125. Sodium 144, potassium 4.1, chloride 97, bicarbonate 36, BUN 60, creatinine 0.9. IMPRESSION: A 52-year-old with: 1. Morbid obesity and a body mass index of greater than 50. 2. Acute hypoxemic and acute hypercapnic respiratory failure. 3. Pulmonary edema. 4. Pleural effusions. 5. Acute cor pulmonale. 6. Climbing BUN. RECOMMENDATIONS: 1. Continue ventilatory support. 2. Continue to attempt a negative fluid balance. 3. Continue bronchodilators. 4. Continue tube feeds. 5. Anticipate tracheostomy given failed improvement. It would be of benefit to have his FiO2 lower before tracheostomy has been performed. Time spent in critical care management: 30+ minutes cc: Danish Garg MD [facility]
[2018-06-15] MEDS: DIPRIVAN 1% 1,000 MG/100 ML BOTTLE IV SCH ×9 (01:49→23:28)
[2018-06-15] MEDS: REGLAN IV SCH ×3 (02:03→17:10)
[2018-06-15] MEDS: ZOSYN 3.375 GM in NS 50 ML IV SCH ×4 (02:04→20:18)
[2018-06-15] MEDS: SOLU-MEDROL IV SCH ×3 (02:04→17:10)
[2018-06-15 03:14] LABS: BASO# 0.01 X1000 (0.0-0.2); BASO% 0.1 % (0.0-0.8); EOS# 0.03 X1000 (0.0-0.7); EOS% 0.2 % (0.0-10.0); HEMATOCRIT 44.4 % (42.0-52.0); HEMOGLOBIN 13.4 g/dL (14.0-18.0); IMM GRAN# 0.07 X1000 (0.0-0.04); IMM GRAN% 0.5 % (0.0-0.5); LYMPH# 0.65 X1000 (1.2-3.4); LYMPH% 4.4 % (20.5-51.1); MCH 27.4 PG (27-31); MCHC 30.2 g/dL (33-37); MCV 90.8 FL (81-99); MONO# 1.76 X1000 (0.11-0.59); MPV 12.6 FL (7.4-10.4); NEUT# 12.16 X1000 (1.4-6.5); NEUT% 82.8 % (42.2-75.2); PLT 189 X1000 (130-400); RBC 4.89 XMIL (4.7-6.1); RDW 18.7 % (11.5-14.5); WBC 14.68 X1000 (4.8-10.8)
[2018-06-15 03:52] LABS: AGAP 6; ALB/GLOB RATIO 0.5; ALBUMIN 2.3 g/dL (3.5-5.0); ALKALINE PHOSPHATASE 76 U/L (32-122); BUN 54 mg/dL (8-22); CALCIUM 8.7 mg/dL (8.8-10.2); CHLORIDE 91 mmol/L (98-107); COSMO 286; CREATININE 0.7 mg/dL (0.7-1.2); ESTIMATED GFR > 60; GLUCOSE 115 mg/dL (70-104); GOT 32 U/L (10-34); GPT 54 U/L (10-44); POTASSIUM 3.9 mmol/L (3.5-5.1); SODIUM 135 mmol/L (136-145); TCO2 38 mmol/L (25-35); TOTAL BILIRUBIN 0.66 mg/dL (0.20-1.00); TOTAL PROTEIN 6.5 g/dL (6.3-8.3)
--- NOTE | 2018-06-15 04:00 | PROGRESS NOTE ---
DATE: 06/14/2018 SUBJECTIVE: The patient remains sedated on the ventilator. His oxygen saturations have been low despite full ventilatory support. OBJECTIVE: Vital Signs: Temperature 97.6 degrees, blood pressure 104/73, heart rate 79, respirations 16, O2 saturation is 88% on the mechanical ventilator, FiO2 of 100. Intake and Output: Intake 2.6 L. Output 3 L. General: This is a morbidly obese male, lying in bed sedated on the ventilator. Head: Normocephalic, atraumatic. Heart: S1, S2 normal, regular rate and rhythm. Lungs: Diminished breath sounds bilaterally. No crackles. No rales. Abdomen: Hypoactive bowel sounds. Soft, obese. Extremities: 1+ to 2+ edema. Neurologic: The patient is currently sedated. DIAGNOSTIC STUDIES: White blood cell count 12, hemoglobin 13, hematocrit 46, platelets 222,000. ABG, pH of 7.38, pCO2 of 69, PO2 of 125, bicarbonate 34. Sodium 144, potassium 4.1, chloride 97, CO2 of 36, BUN 60, creatinine 0.9, glucose 136, AST 37, ALT 63. Chest x-ray shows worsening pulmonary edema, bilateral pleural effusions. ASSESSMENT AND PLAN: 1. Acute hypoxemic and hypercapnic respiratory failure. Continue ventilator management as directed by the traffic counter. 2. Acute pulmonary edema with acute on chronic diastolic congestive heart failure exacerbation. Continue on diuretic therapy as directed by the traffic counter. 3. Acute chronic obstructive pulmonary disease exacerbation. Continue with the current treatment plan. 4. Azotemia. The patient's BUN is rising. This is likely as a result of diuretic therapy. 5. Morbid obesity. Aware. 6. Cor pulmonale. Aware. 7. Nutrition. Continue with tube feeds. 8. Diabetes mellitus, type 2. Continue on sliding scale insulin. 9. Gastrointestinal prophylaxis. Continue on Protonix. 10. Deep vein thrombosis prophylaxis. Continue on Lovenox. DISPOSITION: I updated the patient's on the patient's medical status. The patient is critically ill with a high risk of mortality. We will consult Palliative Care for goals of care. cc: Kathryn Covarrubias MD [facility]
[2018-06-15 04:55] LABS: ALLEN TEST YES; BE 15.8 mmoll (-3.0-3.0); BLOOD TYPE ARTERIAL; HCO3-(ACT) 37.1 mmoll (20.0-26.0); METHB 0.8 % (0.0-1.5); O2(CT) 18.2 mL/dL (15.0-23.0); O2HB 93.4 % (95.0-99.0); PO2(98.6) 65 mmHg (60-100); SAMPLE BLOOD; SAO2 96.2 % (95.0-100.0); SRATE 10 BPM; THB 13.9 g/dL (11.5-17.4); TVOL 650 mL; pH(98.6) 7.45 (7.35-7.45)
[2018-06-15 04:56] LABS: MODALITY VENTILATOR; PCO2(98.6) 62 mmHg (35-45)
[2018-06-15] MEDS: LASIX IV SCH ×2 (05:11→17:10)
[2018-06-15] MEDS: VANCOMYCIN 1,800 MG in NS 250 ML IV SCH ×2 (05:12→22:03)
[2018-06-15] MEDS: HUMULIN R SUBQ SCH ×4 (06:11→20:17)
--- NOTE | 2018-06-15 07:31 | Diag Imaging Result Doc PS360 ---
EXAM: CHEST-PORTABLE 06/15/2018 HISTORY: Vent protocol TECHNIQUE: AP portable at 0524 COMMENT: There is an endotracheal tube with its tip at thoracic inlet and an NG tube passing below the diaphragm. There is cardiomegaly. There is bilateral pleural effusion and hazy pulmonary edema particularly over the right lower lobe. This has worsened slightly. IMPRESSION: Cardiomegaly pulmonary edema and small bilateral pleural effusions. Electronically signed by Gurpreet Hicks 06/15/2018 7:29 AM
[2018-06-15] MEDS: MUCOMYST 20% INH SCH ×2 (08:10→19:30)
[2018-06-15] MEDS: DUONEB (A & A) INH SCH ×6 (08:12→23:30)
[2018-06-15] MEDS: PROTONIX IV SCH (08:16)
[2018-06-15] MEDS: ASPIRIN PO SCH (08:16)
[2018-06-15] MEDS: PERIDEX MT SCH ×2 (08:16→20:17)
--- NOTE | 2018-06-15 15:44 | PROGRESS NOTE ---
DATE: 06/15/2018 SUBJECTIVE: The patient remains sedated on the ventilator. OBJECTIVE: Vital signs: Temperature 98.6 degrees, blood pressure 107/72, heart rate 87, respirations 21, O2 saturation is 88% on 100% FiO2 on the ventilator. Intake 4.2 L. Output 3.8 L. General: This is a morbidly obese male, on the ventilator. Heart: S1, S2 normal. Regular rate and rhythm. Lungs: Diminished breath sounds bilaterally. Abdomen: Obese. Positive bowel sounds. Soft. Extremities: There is 1+ to 2+ edema. Neurologic: The patient is sedated. LABS: White blood cell count 14, hemoglobin 13, hematocrit 44, platelets 189,000. Sodium 135, potassium 3.9, chloride 91, CO2 38, BUN 54, creatinine 0.4, glucose 115. AST 32, ALT 54, alkaline phosphatase 76. Chest x-ray shows pulmonary edema and small bilateral pleural effusions. ASSESSMENT AND PLAN: 1. Acute hypoxemic and hypercapnic respiratory failure. Continue with ventilatory support as directed by the fuel oil clerk. 2. Acute pulmonary edema with acute on chronic diastolic congestive heart failure exacerbation. Continue on diuretic therapy as directed by the fuel oil clerk. 3. Acute chronic obstructive pulmonary disease. Aware. Continue with the current treatment. 4. Azotemia. Unchanged. 5. Morbid obesity. Aware. 6. Cor pulmonale. Aware. 7. Nutrition. Continue with tube feeds. 8. Diabetes mellitus type 2. Continue with sliding scale insulin. 9. Gastrointestinal prophylaxis. Continue on Protonix. 10. Deep vein thrombosis prophylaxis. Continue on Lovenox. cc: Kathryn Covarrubias MD
[2018-06-15] MEDS: LOVENOX SUBQ SCH (17:10)
[2018-06-15] MEDS ORDERED: LASIX IV ONE ×2 (17:17)
--- NOTE | 2018-06-15 18:27 | PULMONOLOGY PROGRESS NOTE ---
DATE: 06/15/2018 SUBJECTIVE: The patient remains sedated. He continues to remain on mechanical ventilation and 100% FiO2. OBJECTIVE: HEENT: Pupils are equal and reactive. Oropharynx is clear. Neck: Supple. Chest: Diminished breath sounds bilaterally. Cardiac: Distant heart sounds. Normal S1, normal S2. Abdomen: Obese and soft. Extremities: Reveal 1+ peripheral edema with evidence of diuresis and mild wrinkling. LABS: White blood count 14.68, hemoglobin 13.4, platelet count 189,000. Arterial blood gas: pH 7.45, pCO2 of 62, pO2 of 65. Chest x-ray reveals cardiomegaly, pleural effusions, and pulmonary edema which appears slightly worse. IMPRESSION: A 52-year-old with: 1. Morbid obesity and a body mass index greater than 50. (Note: Weight today is not correct.) 2. Acute hypoxemic respiratory failure. 3. Pulmonary edema. 4. Pleural effusions. 5. Cor pulmonale. 6. Elevated BUN, making it difficult for aggressive diuresis. PLAN: 1. Continue ventilatory support. 2. Continue diuresis as tolerated. 3. Continue bronchodilators. 4. Continue tube feeds. 5. Anticipate the need for a tracheostomy, but will be difficult to perform unless his oxygen requirements decreased. TIME SPENT IN CRITICAL CARE MANAGEMENT: 30+ minutes. cc: Danish Garg MD
[2018-06-16] MEDS: DIPRIVAN 1% 1,000 MG/100 ML BOTTLE IV SCH ×8 (01:27→21:27)
[2018-06-16] MEDS: REGLAN IV SCH ×3 (01:27→16:05)
[2018-06-16] MEDS: SOLU-MEDROL IV SCH ×3 (01:28→17:49)
[2018-06-16] MEDS: ZOSYN 3.375 GM in NS 50 ML IV SCH ×4 (02:30→20:54)
[2018-06-16] MEDS: DUONEB (A & A) INH SCH ×6 (03:50→23:30)
[2018-06-16 05:40] LABS: ALLEN TEST YES; BE 14.9 mmoll (-3.0-3.0); BLOOD TYPE ARTERIAL; HCO3-(ACT) 36.5 mmoll (20.0-26.0); METHB 1.1 % (0.0-1.5); O2HB 95.2 % (95.0-99.0); PO2(98.6) 84 mmHg (60-100); SAMPLE BLOOD; SAO2 97.6 % (95.0-100.0); SRATE 10 BPM; THB 15.7 g/dL (11.5-17.4); TVOL 650 mL; pH(98.6) 7.49 (7.35-7.45)
[2018-06-16 05:43] LABS: PCO2(98.6) 54 mmHg (35-45)
[2018-06-16 05:44] LABS: MODALITY VENTILATOR
[2018-06-16 05:54] LABS: BASO# 0.02 X1000 (0.0-0.2); BASO% 0.1 % (0.0-0.8); EOS# 0.01 X1000 (0.0-0.7); HEMOGLOBIN 14.8 g/dL (14.0-18.0); IMM GRAN# 0.15 X1000 (0.0-0.04); IMM GRAN% 0.7 % (0.0-0.5); LYMPH# 1.34 X1000 (1.2-3.4); LYMPH% 6.1 % (20.5-51.1); MCH 26.1 PG (27-31); MCHC 29.6 g/dL (33-37); MCV 88.3 FL (81-99); MONO# 1.65 X1000 (0.11-0.59); MONO% 7.6 % (1.7-9.3); MPV 12.6 FL (7.4-10.4); NEUT# 18.68 X1000 (1.4-6.5); NEUT% 85.5 % (42.2-75.2); PLT 213 X1000 (130-400); RBC 5.66 XMIL (4.7-6.1); RDW 18.9 % (11.5-14.5); WBC 21.85 X1000 (4.8-10.8)
[2018-06-16 06:09] LABS: ESTIMATED GFR > 60
[2018-06-16 06:13] LABS: AGAP 10; ALB/GLOB RATIO 0.7; ALBUMIN 3.2 g/dL (3.5-5.0); ALKALINE PHOSPHATASE 93 U/L (32-122); BUN 54 mg/dL (8-22); CALCIUM 9.8 mg/dL (8.8-10.2); CHLORIDE 95 mmol/L (98-107); COSMO 302; CREATININE 0.8 mg/dL (0.7-1.2); GLUCOSE 134 mg/dL (70-104); GOT 32 U/L (10-34); GPT 75 U/L (10-44); SODIUM 143 mmol/L (136-145); TCO2 38 mmol/L (25-35); TOTAL BILIRUBIN 0.88 mg/dL (0.20-1.00); TOTAL PROTEIN 7.7 g/dL (6.3-8.3)
[2018-06-16] MEDS: HUMULIN R SUBQ SCH ×4 (06:14→21:02)
[2018-06-16] MEDS: MUCOMYST 20% INH SCH ×2 (07:27→19:30)
--- NOTE | 2018-06-16 07:36 | Diag Imaging Result Doc PS360 ---
CHEST-PORTABLE - 06/16/2018 INDICATION: Vent protocol COMPARISON: 06/15/2018 FINDINGS: Support lines and tubes are stable. Stable cardiomegaly. Stable diffuse bilateral hazy infiltrates suggesting pulmonary edema. IMPRESSION: No change from prior. Electronically signed by Mo Mackey 06/16/2018 7:34 AM
[2018-06-16] MEDS: ASPIRIN PO SCH (08:27)
[2018-06-16] MEDS: PERIDEX MT SCH ×2 (08:27→20:54)
[2018-06-16] MEDS: PROTONIX IV SCH (08:27)
[2018-06-16] MEDS ORDERED: LASIX IV SCH (14:00)
[2018-06-16] MEDS: LASIX IV SCH (14:57)
[2018-06-16] MEDS: NS IV SCH (14:57)
[2018-06-16] MEDS: VANCOMYCIN 1,800 MG in NS 250 ML IV SCH (16:06)
[2018-06-16] MEDS: LOVENOX SUBQ SCH (16:06)
--- NOTE | 2018-06-16 16:43 | PULMONOLOGY PROGRESS NOTE ---
DATE: 06/16/2018 SUBJECTIVE: The patient remains sedated. He remains on 100% FiO2. He is diuresing. OBJECTIVE: Intake 3108, output 4910. BP 138/80, heart rate 98, respiratory rate 26, oxygen saturation 93%.HEENT: Pupils are equal and reactive. Oropharynx is clear. Neck: Is supple. Chest: Reveals diminished breath sounds bilaterally. Cardiac: Distant heart sounds. Normal S1, normal S2. Abdomen: Obese and soft. Extremities: Reveal slight decrease in peripheral edema. LABORATORIES: Sodium 143, potassium 4.0, chloride 95, bicarbonate 38, BUN 54, creatinine 0.8. White blood count 21,000, hemoglobin 14.8, platelet count 213,000. Chest x-ray reveals cardiomegaly, pulmonary edema, pleural effusions. No change. Arterial blood gas reveals pH 7.49, pCO2 of 54, PO2 of 84 on 100% FiO2. IMPRESSION: A 52-year-old with 1. Morbid obesity. 2. Acute hypoxemic respiratory failure. 3. Pulmonary edema. 4. Pleural effusions. 5. Cor pulmonale. 6. Severe chronic obstructive pulmonary disease. PLAN: 1. Continue ventilatory support. 2. Continue to push diuresis as tolerated. 3. Continue tube feeds. 4. Continue bronchodilators. 5. Anticipate tracheostomy. However, his FiO2 will need to be less than 100% before tracheostomy can be performed successfully. TIME SPENT IN CRITICAL CARE MANAGEMENT: 30+ minutes. cc: Danish Garg MD
--- NOTE | 2018-06-16 19:19 | PROGRESS NOTE ---
DATE: 06/16/2018 SUBJECTIVE: The patient is resting. He is currently sedated on the ventilator with an FiO2 of 100%. OBJECTIVE: Vital Signs: Temperature 98.6 degrees, blood pressure 120/70, heart rate 95, respiratory rate 37, O2 saturations 89% on 100% FiO2 on the ventilator. General: This is a morbidly obese male lying in bed in no acute distress. Heart: S1, S2 normal. Regular rate and rhythm. Lungs: Diminished breath sounds bilaterally. No crackles, no rales. Abdomen: Positive bowel sounds. Soft, nontender, nondistended. Extremities: 2+ edema. Neuro: The patient is currently sedated. LABS: White blood cell count 21, hemoglobin 14, hematocrit 50, platelets 213,000. ABG pH of 7.49, pCO2 54, PO2 84, bicarb 36. Sodium 143, potassium 4, chloride 97, CO2 38, BUN 54, creatinine 0.8, glucose 134. Chest x-ray diffuse bilateral hazy infiltrates. ASSESSMENT AND PLAN: 1. Acute hypoxemic and hypercapnic respiratory failure. Continue with ventilatory support as directed by the network operations lead. 2. Acute pulmonary edema with acute on chronic diastolic congestive heart failure. Continue with diuretic therapy as directed by the network operations lead. 3. Chronic obstructive pulmonary disease exacerbation. Continue with steroids and bronchodilator therapy. 4. Cor pulmonale. Aware. 5. Azotemia. Continue to monitor closely while on diuretic therapy. 6. Nutrition. Continue with tube feeds. 7. Diabetes mellitus type 2. Continue on sliding scale insulin. 8. Gastrointestinal prophylaxis. Continue on Protonix. 9. Constipation. Will check an abdominal x-ray. 10. Deep vein thrombosis prophylaxis. Continue on Lovenox. cc: Kathryn Covarrubias MD
[2018-06-17] MEDS: SOLU-MEDROL IV SCH ×3 (02:06→17:14)
[2018-06-17] MEDS: REGLAN IV SCH ×2 (02:06→08:43)
[2018-06-17] MEDS: ZOSYN 3.375 GM in NS 50 ML IV SCH ×2 (02:07→08:43)
[2018-06-17] MEDS: LASIX IV SCH ×3 (02:09→16:16)
[2018-06-17] MEDS: NS IV SCH (02:09)
[2018-06-17] MEDS: DIPRIVAN 1% 1,000 MG/100 ML BOTTLE IV SCH ×9 (02:49→23:20)
[2018-06-17] MEDS: DUONEB (A & A) INH SCH ×6 (03:30→23:28)
[2018-06-17 05:10] LABS: ALLEN TEST YES; BE 16.2 mmoll (-3.0-3.0); BLOOD TYPE ARTERIAL; HCO3-(ACT) 37.3 mmoll (20.0-26.0); O2(CT) 20.8 mL/dL (15.0-23.0); PO2(98.6) 59 mmHg (60-100); SAMPLE BLOOD; SAO2 92.6 % (95.0-100.0); SRATE 10 BPM; THB 16.5 g/dL (11.5-17.4); TVOL 650 mL; pH(98.6) 7.47 (7.35-7.45)
[2018-06-17 05:11] LABS: MODALITY VENTILATOR; PCO2(98.6) 60 mmHg (35-45)
[2018-06-17] MEDS: HUMULIN R SUBQ SCH ×4 (06:27→20:47)
[2018-06-17 06:49] LABS: MAGNESIUM 2.4 mg/dL (1.5-2.7); PHOSPHORUS 2.9 mg/dL (2.7-4.5)
[2018-06-17 06:51] LABS: ESTIMATED GFR > 60
[2018-06-17 06:54] LABS: AGAP 13; ALB/GLOB RATIO 0.6; ALBUMIN 3.1 g/dL (3.5-5.0); ALKALINE PHOSPHATASE 89 U/L (32-122); BUN 54 mg/dL (8-22); CALCIUM 9.5 mg/dL (8.8-10.2); CHLORIDE 99 mmol/L (98-107); COSMO 316; CREATININE 0.9 mg/dL (0.7-1.2); GLUCOSE 148 mg/dL (70-104); GOT 28 U/L (10-34); GPT 65 U/L (10-44); POTASSIUM 3.7 mmol/L (3.5-5.1); SODIUM 150 mmol/L (136-145); TCO2 38 mmol/L (25-35); TOTAL BILIRUBIN 0.93 mg/dL (0.20-1.00)
[2018-06-17 07:01] LABS: BASO# 0.02 X1000 (0.0-0.2); BASO% 0.1 % (0.0-0.8); EOS# 0.02 X1000 (0.0-0.7); EOS% 0.1 % (0.0-10.0); HEMATOCRIT 53.2 % (42.0-52.0); HEMOGLOBIN 15.6 g/dL (14.0-18.0); IMM GRAN# 0.17 X1000 (0.0-0.04); IMM GRAN% 0.7 % (0.0-0.5); LYMPH# 0.63 X1000 (1.2-3.4); LYMPH% 2.5 % (20.5-51.1); MCH 26.2 PG (27-31); MCHC 29.3 g/dL (33-37); MCV 89.3 FL (81-99); MONO# 2.09 X1000 (0.11-0.59); MONO% 8.4 % (1.7-9.3); MPV 13.3 FL (7.4-10.4); NEUT# 21.86 X1000 (1.4-6.5); NEUT% 88.2 % (42.2-75.2); PLT 209 X1000 (130-400); RBC 5.96 XMIL (4.7-6.1); RDW 19.7 % (11.5-14.5); WBC 24.79 X1000 (4.8-10.8)
[2018-06-17 07:46] LABS: LYMPHS 2 % (21-51); MONO 8 % (1-9); SEGS 90 % (42-75)
[2018-06-17] MEDS: MUCOMYST 20% INH SCH ×2 (07:52→19:34)
[2018-06-17] MEDS ORDERED: ZAROXOLYN NG ONE (08:26)
[2018-06-17] MEDS ORDERED: D5W 1,000 ML IV SCH (08:30)
[2018-06-17] MEDS: PERIDEX MT SCH ×2 (08:42→20:23)
[2018-06-17] MEDS: PROTONIX IV SCH (08:43)
[2018-06-17] MEDS: ASPIRIN PO SCH (08:44)
--- NOTE | 2018-06-17 08:44 | Diag Imaging Result Doc PS360 ---
CHEST-PORTABLE - 06/17/2018 INDICATION: Vent protocol COMPARISON: 06/16/2018 FINDINGS: Support lines and tubes are stable. There is worsening in the bilateral alveolar infiltrates mainly in the upper lobes. Stable cardiomegaly and pulmonary vascular congestion. Stable bibasilar infiltrates. There are probably trace pleural effusions. IMPRESSION: Worsening bilateral dense upper lobe infiltrates. Electronically signed by Mo Mackey 06/17/2018 8:41 AM
--- NOTE | 2018-06-17 08:56 | Diag Imaging Result Doc PS360 ---
ABDOMEN FLAT/UPRIGHT - 06/17/2018 INDICATION: constipation COMPARISON: 06/07/2018 FINDINGS: There is a nasogastric tube in good position in the stomach. There is perhaps mild constipation of the transverse colon. No bowel obstruction or free air. IMPRESSION: Mild constipation but no acute disease. Electronically signed by Mo Mackey 06/17/2018 8:54 AM
[2018-06-17] MEDS: LACTULOSE NG SCH ×2 (10:22→20:23)
[2018-06-17] MEDS: MERREM 1 GM in NS 50 ML IV SCH ×2 (10:22→16:17)
[2018-06-17] MEDS: VANCOMYCIN 1,800 MG in NS 250 ML IV SCH (10:22)
[2018-06-17] MEDS ORDERED: MYCAMINE 100 MG in NS 100 ML IV SCH (13:30)
--- NOTE | 2018-06-17 17:02 | PROGRESS NOTE ---
DATE: 06/17/2018 SUBJECTIVE: The patient remains sedated on the ventilator. OBJECTIVE: Vital signs: Temperature 99.8 degrees, blood pressure 101/80, heart rate 100, respirations 16, O2 saturations 89% on 100% on the mechanical ventilator. Intake 2.5 L, output 4.6 L. General: This is a morbidly obese male lying in bed in no acute distress. Heart: S1, S2. Normal. Tachycardic. Lungs: Diminished breath sounds bilaterally. No crackles, no rales. Abdomen: Positive bowel sounds. Soft, obese. Extremities: 2+ edema. Neuro: The patient is currently sedated on the ventilator. LABS: White blood cell count 24, hemoglobin 15, hematocrit 53, platelets 209,000. ABG pH of 7.47, pCO2 60, PO2 59, bicarb 37. Sodium 150, potassium 3.7, chloride 99, CO2 38, BUN 54, creatinine 0.9, glucose 148, phosphorus 2.9, magnesium 2.4, albumin 3.1, procalcitonin negative. Chest x-ray shows worsening dense upper lobe infiltrates. Abdominal x-ray shows mild constipation. ASSESSMENT AND PLAN: 1. Acute hypoxemic and hypercapnic respiratory failure. The patient is on full ventilatory support. Further management as per the data entry. 2. Acute pulmonary edema with acute on chronic diastolic congestive heart failure. Continue with diuretic therapy as directed by the data entry. 3. Chronic obstructive pulmonary disease exacerbation. Continue on IV steroids and bronchodilator therapy. 4. Pneumonia. A sputum culture is pending. The antibiotic coverage has been broadened. 5. Leukocytosis. Worse today. Will broaden the antibiotic coverage. 6. Hypernatremia. The patient is now on D5W. 7. Azotemia. Stable. Continue to monitor closely while on diuretic therapy. 8. Nutrition. Continue with tube feeds. 9. Constipation. Will order lactulose as well as a Dulcolax suppository. 10. Diabetes mellitus type 2. Continue on sliding scale insulin. 11. Gastrointestinal prophylaxis. Continue on Protonix. 12. Deep vein thrombosis prophylaxis. Continue on Lovenox. 13. Disposition. I updated the patient's stepfather and fiancee about the patient's overall medical condition. cc: Kathryn Covarrubias MD [facility]
--- NOTE | 2018-06-17 18:13 | PULMONOLOGY PROGRESS NOTE ---
DATE: 06/17/2018 SUBJECTIVE: The patient remains sedated on mechanical ventilation. His oxygen saturation is marginal on 100% FiO2. OBJECTIVE: Vital Signs: Maximum temperature in the last 24 hours is 100.6 degrees. Blood pressure 110/70, heart rate 101, respiratory rate 17, oxygen saturation 88%. Intake 2548, output 4650. HEENT: Pupils are equal. Oropharynx is clear, but evaluation is limited. Neck: Supple. Chest: Reveals prolonged expiratory phase with coarse breath sounds. Cardiac: S1, S2. Abdomen: Obese and soft with positive bowel sounds. Extremities: Reveal decreasing edema. LABORATORIES: Chest x-ray reveals increasing bilateral infiltrates. Sodium 150, potassium 3.7, chloride 99, bicarbonate 38, BUN 54, creatinine 0.9. White blood count 24.8000, hemoglobin 15.6, platelet count 209,000. IMPRESSION: A 52-year-old with: 1. Acute hypoxemic respiratory failure. 2. Pulmonary edema. 3. Pleural effusions. 4. Cor pulmonale. 5. Severe chronic obstructive pulmonary disease. 6. Increasing pulmonary infiltrates, low-grade fever, increasing white blood count despite broad- spectrum penicillin and vancomycin. Sputum looks slightly bloody, but not grossly purulent. RECOMMENDATIONS: 1. Continue full ventilatory support. 2. Continue diuresis. 3. Continue tube feeds. 4. One liter D5W for progressive hypernatremia. 5. Repeat sputum culture. 6. Change antibiotic regimen. The patient was on Zosyn and Dr. Covarrubias has added meropenem. I will discontinue Zosyn, discontinue vancomycin, and we will add Zyvox and micafungin. 7. Prognosis is guarded to poor. The patient's family is at bedside. We discussed tracheostomy if his oxygen requirements decrease. TIME SPENT: Critical care management, 30+ minutes. cc: Danish Garg MD
[2018-06-17] MEDS ORDERED: DULCOLAX PR SCH (21:00)
[2018-06-18] MEDS: LASIX IV SCH (01:29)
[2018-06-18] MEDS: SOLU-MEDROL IV SCH (01:29)
[2018-06-18] MEDS: MERREM 1 GM in NS 50 ML IV SCH (01:30)
[2018-06-18] MEDS: DUONEB (A & A) INH SCH (02:49)
[2018-06-18] MEDS: DIPRIVAN 1% 1,000 MG/100 ML BOTTLE IV SCH ×2 (03:29→05:54)
[2018-06-18 04:51] LABS: ALLEN TEST YES; BE 10.6 mmoll (-3.0-3.0); BLOOD TYPE ARTERIAL; HCO3-(ACT) 32.6 mmoll (20.0-26.0); METHB 0.9 % (0.0-1.5); O2(CT) 20.4 mL/dL (15.0-23.0); SAMPLE BLOOD; SAO2 83.8 % (95.0-100.0); SRATE 10 BPM; THB 17.9 g/dL (11.5-17.4); TVOL 650 mL; pH(98.6) 7.39 (7.35-7.45)
[2018-06-18 04:53] LABS: MODALITY VENTILATOR
[2018-06-18 04:54] LABS: O2HB 81.3 % (95.0-99.0); PCO2(98.6) 65 mmHg (35-45); PO2(98.6) 46 mmHg (60-100)
[2018-06-18 05:06] LABS: WBC 30.12 X1000 (4.8-10.8)
[2018-06-18 05:11] LABS: BASO# 0.04 X1000 (0.0-0.2); BASO% 0.1 % (0.0-0.8); HEMATOCRIT 59.2 % (42.0-52.0); HEMOGLOBIN 17.2 g/dL (14.0-18.0); IMM GRAN# 0.25 X1000 (0.0-0.04); IMM GRAN% 0.8 % (0.0-0.5); LYMPH# 0.97 X1000 (1.2-3.4); LYMPH% 3.2 % (20.5-51.1); MCH 25.9 PG (27-31); MCHC 29.1 g/dL (33-37); MCV 89.3 FL (81-99); MONO# 1.99 X1000 (0.11-0.59); MONO% 6.6 % (1.7-9.3); MPV 13.4 FL (7.4-10.4); NEUT# 26.87 X1000 (1.4-6.5); NEUT% 89.3 % (42.2-75.2); PLT 239 X1000 (130-400); RBC 6.63 XMIL (4.7-6.1); RDW 20.3 % (11.5-14.5)
[2018-06-18 05:37] LABS: ALB/GLOB RATIO 0.7; DIRECT BILIRUBIN 0.6 mg/dL (0.00-0.20); TOTAL BILIRUBIN 1.31 mg/dL (0.20-1.00); TOTAL PROTEIN 7.5 g/dL (6.3-8.3)
[2018-06-18 06:01] VITALS: BP 69/55
[2018-06-18 06:10] LABS: ALBUMIN 2.9 g/dL (3.5-5.0); CALCIUM 9.4 mg/dL (8.8-10.2); CREATININE 1.9 mg/dL (0.7-1.2); PHOSPHORUS 6.1 mg/dL (2.7-4.5); POTASSIUM 4.8 mmol/L (3.5-5.1)
[2018-06-18] MEDS: HUMULIN R SUBQ SCH (06:12)
[2018-06-18 06:35] LABS: LYMPHS 8 % (21-51); MONO 4 % (1-9); SEGS 86 % (42-75)
[2018-06-18] MEDS ORDERED: SODIUM BICARBONATE 8.4% IV ONE (07:00)
[2018-06-18] MEDS ORDERED: EPINEPHRINE SYRINGE IV ONE (07:00)
[2018-06-18] MEDS ORDERED: CALCIUM CHLORIDE SYRINGE IV ONE (07:00)
[2018-06-18] MEDS ORDERED: CORDARONE IV ONE (07:00)
[2018-06-18] MEDS ORDERED: EPINEPHRINE SYRINGE ONE (07:00)
--- NOTE | 2018-06-18 07:46 | Diag Imaging Result Doc PS360 ---
CHEST-PORTABLE - 06/18/2018 INDICATION: Vent protocol COMPARISON: 06/17/2018 FINDINGS: Support lines and tubes are stable. Stable cardiomegaly. There is been worsening in the dense bilateral infiltrates/ARDS. No large pleural effusion. IMPRESSION: Worsening in the dense bilateral infiltrates. Electronically signed by Mo Mackey 06/18/2018 7:44 AM
--- NOTE | 2018-06-18 08:26 | PROGRESS NOTE ---
DATE: 06/18/2018 HISTORY OF PRESENT ILLNESS: Mr. Gonzalez is a 52-year-old, male who has been admitted since June 04. He has been in the ICU for quite some time. He has been on a ventilator for several days now secondary to acute hypoxic and hypercapnic respiratory failure. He also does have other complications of acute pulmonary edema secondary to congestive heart failure, COPD, and pneumonia. The nurses report that prior to the patient's code that they did receive critical arterial blood gases for which the patient did have a critical pCO2 of 65, a PO2 of 46, oxyhemoglobin of 81.3, with O2 saturation of 83.8 on the ventilator with 100% FiO2. Dr. Garg did give them instructions to increase his PEEP from 10 to 12. Throughout the night, the patient had maintained oxygen saturations in the mid to high 90s. At approximately 0643, the patient's nurse did report that the patient had been sinus tachycardia throughout the night, in the 120s. At 0643 this morning, he did quickly become bradycardic and did go into asystole on the monitor. He was pulseless. A code blue was initiated and ACLS protocol was initiated as well. They did immediately begin CPR. The patient was already intubated, though they were manually bagging him. Myself as well as Dr. Sandoval, the ER physician, did initially respond to the code. The patient's attending physician, Dr. Covarrubias as well as Dr. Franklin with the hospitalist's primary care team responded to the code also. Medications throughout the code of epinephrine, sodium bicarbonate, and calcium were given. The patient initially did have PEA on initial rhythm and pulse checks. He did have one episode of ventricular tachycardia which was defibrillated. He also had one episode of ventricular fibrillation which was defibrillated as well. The patient did regain a pulse, though this was only maintained briefly. He did have what appeared to be a wide QRS tachycardia. The patient's heart rate did become bradycardic again. He did lose a pulse. He did have PEA on the monitor. We did code the patient for a total of approximately 30 minutes though, unfortunately, given all of our resuscitative efforts, the patient did succumb to this illness. Resuscitative measures were ended at [address] Franklin. The patient had no pulse. He was PEA on the monitor and had no auscultated heart sounds. The patient's pertinent labs that were obtained this morning just prior to his cardiac arrest did show he did have an increase in his white blood cell count which is now 30,120. Sodium was 145, potassium 4.8, chloride was 93, serum bicarb was 33, BUN 94, creatinine 1.9, with a GFR of 38, his glucose was 157, calcium was 9.4, phosphorus was 6.1. The only electrolyte chemistry that was not obtained this morning with a magnesium, though yesterday, it was within normal range at 2.4. The patient's nurse did try to contact his stepfather for which I have been informed is his closest kin and is making medical decisions for him. They were not able to reach him at this time. They were able to get a hold of a secondary family member who is going to try to get in touch with his stepfather and instruct him to come to the hospital. The patient's attending physician, Dr. Covarrubias, has been updated on the patient's cardiac arrest and his passing. Please see nurses' documentation and code blue resuscitation documentation for further details. Dictated by SYLVIA Lund for Sumeet Franklin MD cc: Sumeet Franklin MD
[2018-06-18] MEDS ORDERED: ZYVOX 600 MG/D5W 600 MG/300 ML IVPB IV SCH (09:00)
[2018-06-18] MEDS ORDERED: LOVENOX SUBQ SCH (10:00)
--- NOTE | 2018-06-21 22:25 | DISCHARGE SUMMARY ---
ADMISSION DATE: 06/04/2018 DISCHARGE DATE: 06/18/2018 FINAL DISCHARGE DIAGNOSES: 1. Acute hypoxemic and hypercapnic respiratory failure. 2. Acute pulmonary edema. 3. Acute on chronic diastolic congestive heart failure exacerbation. 4. Chronic obstructive pulmonary disease exacerbation. 5. Cor pulmonale. 6. Morbid obesity. 7. Pneumonia. 8. Leukocytosis. 9. Azotemia. 10. Diabetes mellitus type 2. 11. Constipation. 12. Tobacco dependence. CONSULTATIONS: Pulmonary consultation with Dr. Garg. HOSPITAL COURSE: Mr. Gonzalez is a 52-year-old male with a history of morbid obesity, chronic diastolic CHF, tobacco dependence, pulmonary hypertension and COPD, who presented to the ER with a chief complaint of increasing shortness of breath as well as lower scrotal edema and generalized swelling. The patient was initially assessed at [facility] and subsequently transferred to [facility] for pulmonary evaluation. Prior to arrival to [facility], the patient was intubated and sedated. The patient was started on broad-spectrum antibiotics because there was concern about a possible pneumonia. Cultures of the blood and sputum were obtained. The patient was also started on IV steroids, bronchodilator therapy and diuretic therapy. The initial sputum culture came back negative. Also, the first set of blood cultures after 5 days were noted to be negative as well. The patient's subsequent chest x-rays continued to show pulmonary edema with minimal improvement despite aggressive medical therapy. The patient's oxygen requirements also never improved and actually increased over the course of the hospital stay. The patient was started on tube feeds to aid with his nutritional status. The patient's critical condition was discussed with the patient's fiancee and stepfather. They both stated that they wanted the patient to remain a full code despite his poor prognosis. The patient's respiratory status continued to worsen despite full ventilatory support and medical support. On 06/18/2018, the patient's was noted to be in cardiac arrest. ACLS protocol was initiated. Despite all interventions, the patient never regained a pulse and was pronounced at 7:11 a.m. The patient's fiancee and stepfather were notified of the patient's . cc: Kathryn Covarrubias MD
== END 2018-06-18 07:11 | disposition expired | DRG 207 ==
LOC: P.ED 14:55 → P.ICU 17:38 → SUATTDRO 17:38 → ICU 06-05 00:22
PROVIDERS: ATTEND Internal Medicine
CPT/HCPCS: 36569; 71010; 71020; 71045; 71046; 74000; 74018; 74019; 74020; 80048; 80053; 80069; 80076; 80101; 80104; 80202; 80301; 80305; 80307; 80324; 80345; 80346; 80353; 80358; 80361; 80365; 81001; 82550; 82805; 82948; 83036; 83735; 83880; 83992; 84100; 84134; 84145; 84439; 84443; 84478; 84484; 85025; 85027; 85610; 85730; 87040; 87070; 87077; 87186; 87205; 87449; 87899; 93005; 93010; 94003; 94640; 94761; 99285; A9270; C9113; G0431; G0434; G0477; G0479; G0480; J0171; J0282; J0456; J0696; J1650; J1940; J2185; J2248; J2250; J2310; J2543; J2765; J2930; J3010; J3370; J7030; J7050; J7070; S0164; XXXXX